=== PATIENT | male | born 1980 | race Caucasian/White ===

== ENCOUNTER 2022-05-03 18:37 | Emergency (ER) | payer SELFPAY ==
[2022-05-03 18:39] VITALS: BP 122/92; PULSE 102; RESP 18; TEMP 36.7; O2SAT 100; BMI 30.3
[2022-05-03] MEDS: DiphenhydrAMINE 50 MG/ML Syringe IV (18:50)
[2022-05-03] MEDS: MethylPREDNISolone 125 MG/2 ML Vial IV (18:52)
[2022-05-03 18:57] VITALS: O2SAT 96
--- NOTE | 2022-05-03 18:57 | EDS_ITS ---
HPI History of Present Illness Chief Complaint: Allergic Reaction Informant: patient and spouse/S.O. Narrative Narrative: Patient presents with what they think is allergic reaction to shrimp. Patient was asymptomatic. They went out to red lobster to all you can eat shrimp. He has eaten shrimp before without a problem. He was okay right after eating. He went home. He then got on the treadmill. He was doing some exercising was just typical. He noticed his hands were redder than normal. He then started to get a tingling sensation diffusely. He was not short of breath or chest pain. He states he does not feel as though his air is closing up. It is mostly the redness and itching and tingling. Its not worsening. But is not getting better. Nothing was taken. He is overall healthy with no real medical problems. [facility] Medical History Bipolar disorder Home Medications prednisone 20 mg tablet 40 mg PO DAILY #10 TABLETS 05/03/22 [Rx Last Taken Unknown] Allergy/AdvReac Type Severity Reaction Status Date / Time No Known Allergies Allergy Verified 05/03/22 18:41 Social History Smoking Status: Never smoker ROS ROS ED Constitutional Constitutional ED: Denies chills, fever(s), subjective or sweats Eyes Eyes: Denies change in vision ENT ENT ED: Denies rhinorrhea or sore throat Cardiovascular Cardiovascular: Denies chest pain, orthopnea, palpitations or paroxysmal nocturnal dyspnea Respiratory/Chest Respiratory/Chest: Denies cough, dyspnea, dyspnea on exertion, orthopnea, paroxysmal nocturnal dyspnea or sputum Gastrointestinal Gastrointestinal: Denies abdominal pain, nausea or vomiting Musculoskeletal Musculoskeletal: Denies myalgias Integumentary Reports rash Neurologic Neurologic: Denies headache(s), paresthesias or weakness Psychiatric Psychiatric: Denies anxiety Hematologic/Lymphatic Hematologic/Lymphatic: Denies easy bleeding or easy bruising Allergic/Immunologic Allergic/Immunologic ED: Denies urticaria EXAM Physical Exam Narrative Exam Narrative: Patient awake alert no acute distress sitting comfortably on bed carries on normal conversation. HEENT does show some erythema but no intraoral swelling. Voice is normal. Handle secretions normally. No nasal congestion. Neck shows no stridor or JVD Lungs are completely clear. There is no wheezing or rhonchi. Saturations are normal at 100% on room air showing no hypoxia. Heart is regular. He does have a rate about 100. Peripheral pulses are equal and normal. Abdomen is soft completely nontender nondistended. Bowel sounds are normal. Extremities show no tenderness or swelling Neurologically he is awake alert appropriate. Skin does show diffuse erythema that is blanching. This is consistent with allergic reaction. Const Vital Signs: 05/03/22 18:39 05/03/22 18:57 Temperature 98.1 F Temperature Source Temporal Pulse Rate 102 H Respiratory Rate 18 Blood Pressure 122/92 H Blood Pressure Mean 102 Pulse Ox 100 96 Oxygen Delivery Method Room Air Room Air MDM MDM MDM Narrative Medical decision making narrative: Patient's recheck. All his erythema is gone. He is asymptomatic. We will keep him on meds for a few days. I will write for some steroids. We discussed dosing of [id number] Benadryl and Pepcid. We also discussed reasons to return and avoidance of shrimp in the future Discharge Plan Triage Chief Complaint: Allergic Reaction ED Provider: Luke Real Dx/Rx/DC Orders Clinical Impression: Allergy to shrimp, Hives Instructions: ED Food Allergy Prescriptions: New prednisone 20 mg tablet 40 mg PO DAILY Qty: 10 0RF Primary Care Provider: Al Perez Referrals: Al Perez MD [Primary Care Provider] - As Needed Disposition Disposition: Home, Self Care
[2022-05-03] MEDS: 0.9% Normal Saline 1,000 ML 999 ML IV (19:10)
[2022-05-03] MEDS: Famotidine 200 MG/20 ML MDV 20 MG in 0.9% Normal Saline (Pres. free 8 ML 300 MG IV (19:13)
--- NOTE | 2022-05-03 19:49 | ED.RN ---
PER DR. MARIE, PT OKAY TO HAVE A DRINK.
[2022-05-03 20:56] VITALS: RESP 17; O2SAT 98
== END 2022-05-03 21:25 | disposition home or self-care (01) ==
PROVIDERS: Emergency Provider Emergency Medicine; PCP Family Medicine; Visit Provider Emergency Medicine
DX: T78.1XXA Other adverse food reactions, not elsewhere classified, initial encounter (principal); L50.0 Allergic urticaria; Y92.009 Unspecified place in unspecified non-institutional (private) residence as the place of occurrence of the external cause
CPT/HCPCS: 96361; 96374; 96375; 99282; J7030; A4216; J3490

== ENCOUNTER 2023-10-27 18:07 | Inpatient (IN) | payer BC, SELFPAY ==
[2023-10-27 18:08] VITALS: BP 148/85; PULSE 106; RESP 18; TEMP 36.4; O2SAT 97; BMI 33.3
[2023-10-27 19:10] VITALS: BP 138/90; PULSE 99; RESP 18; TEMP 37.2; O2SAT 97
[2023-10-27 19:10] LABS: Absolute Lymphocyte Count 1.36 X10^3/uL (0.83-4.51); Absolute Neutrophil Count 9.8 X10^3/uL (2.0-7.7); Basophil# 0.04 X10^3/uL; Basophil% 0.3 % (0-1); Eosinophil# 0.01 X10^3/uL; Eosinophils% 0.1 % (0-5); Hemoglobin 13.9 g/dL (13.0-16.5); Lymphocyte # 1.36 X10^3/ul (0.83-4.51); Mean Corp Hgb Conc 31.6 g/dL (32-36); Mean Corpuscular Hgb 26.4 pg (27.0-32.0); Mean Corpuscular Volume 83.7 fL (80-94); Mean Platelet Vol. 10.9 fl (6.2-12.0); Monocyte# 1.04 X10^3/uL; Monocyte% 8.4 % (0-10); NRBC Flagged by Analyzer 0 % (0-5); Neutrophil # 9.76 X10^3/uL (2.7-7.7); Neutrophil % 79.4 % (47-70); Platelet Count 188 K/mm3 (150-450); RBC Distribution Width CV 13.4 % (11.6-14.6); RBC Distribution Width SD 40.5 fl (35.1-43.9); Red Blood Count 5.26 M/mm3 (4.6-6.2); White Blood Count 12.3 K/mm3 (4.4-11.0)
[2023-10-27 19:20] LABS: Erythrocyte Sedimentation Rate 7 mm/hr (0-20)
[2023-10-27 19:26] LABS: AST(SGOT) 13 U/L (15-37); Alanine Aminotransfer ALT/SGPT 20 U/L (16-61); Albumin, Serum 3.6 g/dL (3.2-5.0); Alkaline Phosphatase 109 U/L (45-117); Anion Gap 6 (5-15); BUN 18 mg/dL (7-18); Calcium,Total 9.2 mg/dL (8.5-10.1); Chloride 108 mmol/L (98-107); EST Glomerular Filtration Rate 87 mL/min (>60); Est Glom Filt Rate - Afr Amer 105 mL/min (>60); Estimated Creatinine Clearance 122.88 ml/min; Globulin 3.7 g/dL (2.2-4.2); Glucose 89 mg/dL (74-106); Potassium 3.8 mmol/L (3.5-5.1); Protein, Total 7.3 g/dL (6.4-8.2); Sodium Level 140 mmol/L (136-145)
[2023-10-27 19:37] LABS: Lactic Acid 0.8 mmol/L (0.4-1.9)
--- NOTE | 2023-10-27 19:49 | EDS_ITS ---
HPI History of Present Illness Chief Complaint: Upper Extremity Injury Detail of Chief Complaint: Patient seen October 02 for presumed abscess dorsum left wrist Informant: patient Occured/Mechanism Comment: Attempted aspiration unsuccessful. Patient's had pain since September. Onset/Context/Timing Onset: Weeks Context: Sudden Onset Timing: Continuous Quality of Pain: Dull and Aching Location: Left wrist Current Severity: Mild Maximum Severity: Severe Worsened by: Movement Relieved by: Nothing Associated Symptoms Associated Symptoms: Negative for Parasthesia or Weakness Narrative Narrative: Patient is a 43-year-old male. He has history of bipolar affective disorder. He was seen on October 02 with attempt of aspiration dorsal left wrist abscess. He was placed on doxycycline for streptococcal and MRSA coverage. He has had pain since the . He was seen today by Dr. Macias. He performed an arthrocentesis. He states the fluid was purulent. He requested patient receive antibiotics admit n.p.o. after midnight with plan of possible washout tomorrow. Patient denies objective fever. He has had no chills. He has no history of gout or pseudogout. He denies pain in his digits or elbow. Prior similar symptoms: Yes Recent Illness/Hospitalization: Yes PFSH PFSH Medical History Non-restorative sleep Wrist pain, left Swelling of left wrist Knee pain, right Sweating increase Snoring Nevus Bipolar disorder Home Medications ?Medication ?Instructions ?Recorded ?Last Taken ?Type clozapine 100 mg tablet 600 mg PO QHS 10/03/23 Unknown History glycopyrrolate 1 mg tablet 1 mg PO TID 10/03/23 Unknown History lithium carbonate 600 mg capsule 600 mg PO BID 10/03/23 Unknown History docusate sodium 100 mg capsule 100 mg PO BID 10/20/23 Unknown History (Colace) Allergy/AdvReac Type Severity Reaction Status Date / Time clarithromycin (From Biaxin) Allergy PT UNSURE Verified 10/27/23 18:10 OF REACTION Social History household members: spouse number of children: 2 current occupational status: employed current occupation: [employer] Smoking Status: Never smoker alcohol intake: never substance use type: does not use seatbelt use: always ROS ROS ED Constitutional Constitutional ED: Denies chills, fever(s), subjective or sweats Eyes Eyes: Denies blurry vision or change in vision Cardiovascular Cardiovascular: Denies chest pain or palpitations Respiratory/Chest Respiratory/Chest: Denies cough or dyspnea Gastrointestinal Gastrointestinal: Denies nausea or vomiting Musculoskeletal Musculoskeletal: Denies back pain, myalgias or neck pain Neurologic Neurologic: Denies paresthesias or weakness Hematologic/Lymphatic Hematologic/Lymphatic: Denies easy bleeding or easy bruising EXAM Physical Exam Const Vital Signs: 10/27/23 18:08 Temperature 97.6 F L Temperature Source Temporal Pulse Rate 106 H Respiratory Rate 18 Blood Pressure 148/85 H Blood Pressure Mean 106 Pulse Ox 97 Oxygen Delivery Method Room Air Positive well nourished and well developed General Appearance ED: well developed and NAD HEENT Reports moist mucous membranes normocephalic and atraumatic Eyes PERRL and EOMs intact bilaterally Resp normal respiratory effort and clear to auscultation bilaterally Cardio regular rate, regular rhythm, S1 normal heart sound, S2 normal heart sound and no murmurs GI non-tender, non-distended and no masses Extremity Negative for normal to inspection Extremity Narrative: There is erythema swelling over the left wrist dorsal side. This is very painful. He has pain with passive flexion extension. There is no lymphangitis. There is no epitrochlear lymphadenopathy. Neuro oriented x3, CN's II-XII intact bilaterally and moves all extremities Sensorium / Orientation: alert Psych mental status grossly normal Skin Skin Narrative: Erythema over the MDM MDM MDM Narrative Medical decision making narrative: Differential diagnosis would include crystal induced arthritis, inflammatory arthritis versus pyogenic arthritis. Will obtain appropriate blood work. The joint was aspirated per Dr. Lay. He said he sent it for appropriate analysis. Patient was started on ampicillin and vancomycin per the sepsis order set. Lab Data Attestation: I reviewed the patient's lab results. Lab results narrative: White count is elevated 12.3. Electrolyte panel is unremarkable. Lactate is normal. C-reactive protein is elevated at 19.3. ESR is normal.Per lab quantity submitted was insufficient. Labs: Laboratory Results - last 24 hr 10/27/23 19:00 WBC 12.3 H RBC 5.26 Hgb 13.9 Hct 44.0 MCV 83.7 MCH 26.4 L MCHC 31.6 L RDW Std Deviation 40.5 RDW Coeff of [place] 13.4 Plt Count 188 MPV 10.9 Immature Gran % (Auto) 0.800 Neut % (Auto) 79.4 H Lymph % (Auto) 11.0 L [place] % (Auto) 8.4 Eos % (Auto) 0.1 Baso % (Auto) 0.3 Absolute Neuts (auto) 9.8 H Absolute Lymphs (auto) 1.36 Nucleated RBC % 0 ESR 7 Sodium 140 Potassium 3.8 Chloride 108 H Carbon Dioxide 26.0 Anion Gap 6 BUN 18 Creatinine 1.00 Estim Creat Clear Calc 122.88 Est GFR (MDRD) Af Amer 105 Est GFR (MDRD) Non-Af 87 BUN/Creatinine Ratio 18.0 Glucose 89 Lactic Acid 0.8 Calcium 9.2 Total Bilirubin 0.60 AST 13 L ALT 20 Alkaline Phosphatase 109 C-React Prot Ext Range 19.30 H Total Protein 7.3 Albumin 3.6 Globulin 3.7 Albumin/Globulin Ratio 1.0 Management Discussion w/another healthcare provider: Hospitalist (Case discussed with hospitalist. Full admit MedSurg with consult to Dr. Macias) Discharge Plan Dx/Rx/DC Orders Clinical Impression: Monoarticular arthritis, Ganglion cyst of dorsum of left wrist, Leukocytosis, Elevated C-reactive protein Disposition Disposition: Acute Care [facility]
[2023-10-27] MEDS: Ampicillin/Sulbactam 3 GM in 0.9% Normal Saline (100mL MB+) 100 ML IV (19:54)
[2023-10-27 20:00] VITALS: BP 143/90; PULSE 98; RESP 18; TEMP 37.2; O2SAT 98
--- NOTE | 2023-10-27 20:02 | HP.PCM.HOS_ITS ---
[facility] - General General Date of Admission: 10/27/23 Date of Service: 10/27/23 Chief Complaint: Worsening Redness and Swelling of the Left Wrist. [facility] Narrative LIZA DA SILVA, is a 43 M with a past medical history of Obesity; with BMI of 33.4 this admission, Bipolar disorder; on Clozapine and Millis-Clicquot wand history of Ganglion Cyst of the Left wrist who presents to [facility] ER complaining of worsening redness and swelling of the Left wrist. Mr. Da Silva reports his acute symptoms began on October 03, 2023 when a doctor in the ER allegedly tried to aspirate what was thought to be a dorsal Left wrist abscess with postprocedure treatment with oral Doxycycline. Unfortunately, his condition has worsened since that time with increasing pain and swelling. Then earlier today he was seen by Dr. Macias who performed an arthrocentesis with purulent fluid noted consistent with suspected Septic Arthritis of the Left Wrist with Leukocytosis of 12.3K present on admission and then this physician also then recommending to the ER physician that this patient be admitted to the hospitalist service and be kept NPO for his planned surgical I&D in the AM with patient already started on empiric IV Ampicillin and IV Vancomycin in the ER. There is no report of associated fever, chills, nausea, vomiting, abdominal pain, chest pain, SOB or paresthesias. He was then admitted to the general medical floor for ongoing care for a stay that is expected to extend beyond 2 midnights. [facility] Medical History (Updated 10/27/23 @ 20:[address] Josemanuel Palomares, DO) Non-restorative sleep Wrist pain, left Swelling of left wrist Knee pain, right Sweating increase Snoring Nevus Bipolar disorder Home Medications ?Medication ?Instructions ?Recorded ?Last Taken ?Type clozapine 100 mg tablet 600 mg PO QHS 10/03/23 10/26/23 History glycopyrrolate 1 mg tablet 1 mg PO TID 10/03/23 10/27/23 History lithium carbonate 600 mg capsule 600 mg PO BID 10/03/23 10/27/23 History docusate sodium 100 mg capsule 100 mg PO BID 10/20/23 10/27/23 History (Colace) Allergy/AdvReac Type Severity Reaction Status Date / Time clarithromycin (From Biaxin) Allergy PT UNSURE Verified 10/27/23 18:10 OF REACTION Social History household members: spouse number of children: 2 current occupational status: employed current occupation: [employer] Smoking Status: Never smoker alcohol intake: never substance use type: does not use seatbelt use: always ROS ROS Narrative Review of Systems: Constitutional: Patient denies fever or chills. Eyes: Patient denies changes in vision or discharge from eyes. ENT: Patient denies runny nose, sore throat or ear pain. Resp: Patient denies SOB or cough. CV: Patient denies chest pain, palpitations or heart racing. GI: Patient denies abdominal pain, nausea, vomiting, diarrhea or constipation. : Patient denies dysuria, hematuria or urinary hesitancy/frequency. MSK: Patient admits to worsening redness and swelling of the Left wrist made worse with movement. Skin: Patient has no evidence of jaundice. Psych: Patient denies symptoms of uncontrolled depression or anxiety. Neuro: Patient denies headache, paresthesias or focal neurologic deficits. Allergy: Patient denies lip swelling or tongue swelling. Hematology: Patient denies easy bleeding or easy bruisability. Endocrinology: Patient denies polyuria, polydipsia or polyphagia. 14 point ROS otherwise negative except for positives noted above in HPI. Vital Signs Vital Signs Vital Signs: 10/27/23 18:08 Temperature 97.6 F L Temperature Source Temporal Pulse Rate 106 H Respiratory Rate 18 Blood Pressure 148/85 H Blood Pressure Mean 106 Pulse Ox 97 Oxygen Delivery Method Room Air Weight Weight: 246 lb 1.6 oz Body Mass Index (BMI) 33.3 Physical Exam Const alert, oriented x3, no apparent distress and healthy appearing Constitutional Narrative: Obese. General Appearance: cooperative HEENT normocephalic, head/scalp atraumatic, hearing grossly normal bilaterally and moist oral mucous membranes Eyes PERRL and EOMs intact bilaterally Neck no lymphadenopathy and supple Resp normal respiratory effort, no retractions, no use of accessory muscles and clear to auscultation bilaterally Cardio regular rate and regular rhythm GI normal to inspection, nondistended, normoactive bowel sounds, soft to palpation, non-tender and non-distended GI Narrative: Obese. Extremity Extremity Narrative: Left wrist edema and erythema noted. Skin Skin Narrative: Left wrist edema and erythema noted. Neuro oriented x3, CN's II-XII intact bilaterally, moves all extremities and no focal motor deficits Sensorium / Orientation: awake, alert, oriented to person, oriented to place and oriented to time Speech: speech normal Psych affect normal Results Medical Records Data Attestation: I reviewed the patient's medical records Lab / Micro Data Attestation: I reviewed the patient's lab results. 10/27/23 19:00 10/27/23 19:00 Labs: Laboratory Results - last 24 hr 10/27/23 19:00: WBC 12.3 H, RBC 5.26, Hgb 13.9, Hct 44.0, MCV 83.7, MCH 26.4 L, MCHC 31.6 L, RDW Std Deviation 40.5, RDW Coeff of Emily 13.4, Plt Count 188, MPV 10.9, Immature Gran % (Auto) 0.800, Neut % (Auto) 79.4 H, Lymph % (Auto) 11.0 L, [place] % (Auto) 8.4, Eos % (Auto) 0.1, Baso % (Auto) 0.3, Absolute Neuts (auto) 9.8 H, Absolute Lymphs (auto) 1.36, Nucleated RBC % 0, ESR 7, Sodium 140, Potassium 3.8, Chloride 108 H, Carbon Dioxide 26.0, Anion Gap 6, BUN 18, Creatinine 1.00, Estim Creat Clear Calc 122.88, Est GFR (MDRD) Af Amer 105, Est GFR (MDRD) Non-Af 87, BUN/Creatinine Ratio 18.0, Glucose 89, Lactic Acid 0.8, Calcium 9.2, Total Bilirubin 0.60, AST 13 L, ALT 20, Alkaline Phosphatase 109, C -React Prot Ext Range 19.30 H, Total Protein 7.3, Albumin 3.6, Globulin 3.7, Albumin/Globulin Ratio 1.0 Assessment & Plan Assessment/Plan (1) Septic arthritis: QUALIFIERS: Laterality: left Septic arthritis location: wrist S eptic arthritis organism: due to unspecified organism Qualified Code(s): M00.9 - Pyogenic arthritis, unspecified (2) Ganglion cyst of dorsum of left wrist: (3) Leukocytosis: QUALIFIERS: Leukocytosis type: unspecified Qualified Code(s): D 72.829 - Elevated white blood cell count, unspecified (4) Bipolar disorder: QUALIFIERS: Active/Remission status: remission status unspecified Qualified Code(s): F31.9 - Bipolar disorder, unspecified (5) Obesity (BMI 30.0-34.9): PLAN: Plan 1. Septic Arthritis of the Left Wrist with Leukocytosis of 12.3K present on admission in the setting of previous Ganglion Cyst - Admit to general medical floor. Continue empiric IV Ampicillin and IV Vancomycin begun in the ER and await culture and sensitivity data. Give Tylenol prn for [id number] (level 1-5/10) pain or fever. Give Morphine IV prn for severe (level 6-10/10) pain. Finally, we will consult Dr. Macias to see his patient on-rounds in the AM for formal I&D with help appreciated in advance. 2. Bipolar disorder; on Clozapine and [place] complicating #1 - Resume home medications as previous plus give prn benzodiazepines for breakthrough symptoms. 3. Obesity; with BMI of 33.4 this admission - Weight loss will be recommended. Check TSH. 4. DVT prophylaxis - SCD's only for now with I&D pending in the AM. Total time: Approximately 45 minutes. Charges/Coding Visit Charges Inpatient E&M: 31203 Init Hosp L1
[2023-10-27] MEDS: Ketorolac 15 MG/ML Vial IV (20:32)
[2023-10-27] MEDS: Ondansetron 4 MG/2 ML Vial IV (20:32)
[2023-10-27] MEDS: Morphine 4 MG/ML Syringe IV (20:33)
[2023-10-27 20:34] VITALS: BP 141/90; PULSE 90; RESP 18; TEMP 37.2; O2SAT 97
[2023-10-27] MEDS: Vancomycin HCl 2,000 MG in 0.9% Normal Saline (500mL Bag) 500 ML 250 MG IV (21:03)
[2023-10-27 21:20] VITALS: BMI 29.9
[2023-10-27 21:29] VITALS: BP 133/87; PULSE 90; RESP 16; TEMP 36.7; O2SAT 98
[2023-10-27] MEDS: 0.9% Normal Saline (1000mL) 1,000 ML 125 ML IV (22:04)
--- NOTE | 2023-10-27 22:04 | PCM.RX.CS ---
Consult Antibiotic Management Pharmacy has been consulted to manage selected antibiotic: Vancomycin Type of Intervention Type of Consult: New start Suspected Infection Suspected Infection: Sepsis Labs Labs: Sodium 140 mmol/L (136-145) 10/27/23 19:00 Potassium 3.8 mmol/L (3.5-5.1) 10/27/23 19:00 Chloride 108 mmol/L (98-107) H 10/27/23 19:00 Carbon Dioxide 26.0 mmol/L (21.0-32.0) 10/27/23 19:00 Anion Gap 6 (5-15) 10/27/23 19:00 BUN 18 mg/dL (7-18) 10/27/23 19:00 Creatinine 1.00 mg/dL (0.70-1.30) 10/27/23 19:00 Est GFR (MDRD) Af Amer 105 mL/min (>60) 10/27/23 19:00 Est GFR (MDRD) Non-Af 87 mL/min (>60) 10/27/23 19:00 BUN/Creatinine Ratio 18.0 RATIO (10-20) 10/27/23 19:00 Glucose 89 mg/dL (74-106) 10/27/23 19:00 Dosing Weight Weight used for dosin.6 kg Estimated Creatinine Clearance Estimated Creatinine Clearance: 123 Goal Trough Goal Trough: 15-20 mcg/mL Pharmacy Plan for Drug Dosing Pharmacy Plan for Drug Dosing: Pharmacy Service will continue to monitor and adjust dosing as required. Follow-Up Labs Follow-Up Labs: Trough: Vancomycin Date/Time Labs Ordered Labs to be done on [date and time ordered]: 10/28/23 @2030
[2023-10-27] MEDS: Lithium Carbonate 300mg Capsule 600 MG PO (22:07)
[2023-10-27] MEDS: cloZAPine 100 MG TABLET 600 MG PO (22:07)
[2023-10-27] MEDS: Docusate Sodium 100 MG Capsule PO (22:07)
[2023-10-27] MEDS: Glycopyrrolate 1 MG TABLET PO (22:08)
[2023-10-28] VITALS (12 sets, daily range): BP systolic 104–152; BP diastolic 67–89; PULSE 79–102; RESP 16–20; TEMP 36.6–37.2; O2SAT 92–98; BMI 29.9
[2023-10-28] MEDS: Ampicillin/Sulbactam 3 GM in 0.9% Normal Saline (100mL MB+) 100 ML IV ×4 (00:40→18:31)
[2023-10-28] MEDS: Acetaminophen 325 MG Tablet 650 MG PO ×3 (04:22→22:02)
[2023-10-28] MEDS: Vancomycin HCl 1,500 MG in 0.9% Normal Saline (500mL Bag) 500 ML 250 MG IV ×3 (04:27→21:58)
[2023-10-28 05:47] LABS: Absolute Lymphocyte Count 0.96 X10^3/uL (0.83-4.51); Absolute Neutrophil Count 9.5 X10^3/uL (2.0-7.7); Basophil# 0.03 X10^3/uL; Basophil% 0.3 % (0-1); Hematocrit 42.3 % (40-54); Hemoglobin 13.2 g/dL (13.0-16.5); Lymphocyte # 0.96 X10^3/ul (0.83-4.51); Lymphocyte % 8.6 % (19-41); Mean Corp Hgb Conc 31.2 g/dL (32-36); Mean Corpuscular Hgb 26.5 pg (27.0-32.0); Mean Corpuscular Volume 84.9 fL (80-94); Monocyte# 0.64 X10^3/uL; Monocyte% 5.7 % (0-10); NRBC Flagged by Analyzer 0 % (0-5); Neutrophil # 9.52 X10^3/uL (2.7-7.7); Neutrophil % 84.9 % (47-70); Platelet Count 163 K/mm3 (150-450); RBC Distribution Width CV 13.5 % (11.6-14.6); Red Blood Count 4.98 M/mm3 (4.6-6.2); White Blood Count 11.2 K/mm3 (4.4-11.0)
[2023-10-28 06:11] LABS: ALB/GLOB Ratio 1.1 RATIO (0.9-2.4); AST(SGOT) 13 U/L (15-37); Alanine Aminotransfer ALT/SGPT 17 U/L (16-61); Albumin, Serum 3.1 g/dL (3.2-5.0); Alkaline Phosphatase 93 U/L (45-117); Anion Gap 6 (5-15); BUN 17 mg/dL (7-18); BUN/Creat Ratio 18.7 RATIO (10-20); Calcium,Total 8.3 mg/dL (8.5-10.1); Chloride 113 mmol/L (98-107); Creatinine, Serum 0.91 mg/dL (0.70-1.30); EST Glomerular Filtration Rate 97 mL/min (>60); Est Glom Filt Rate - Afr Amer 117 mL/min (>60); Estimated Creatinine Clearance 143.19 ml/min; Globulin 2.9 g/dL (2.2-4.2); Glucose 117 mg/dL (74-106); Phosphorus 3.1 mg/dL (2.5-4.9); Potassium 3.8 mmol/L (3.5-5.1); Sodium Level 142 mmol/L (136-145)
--- NOTE | 2023-10-28 06:13 | RAD_ITS ---
EXAM: XR LEFT HAND COMPLETE, 3 OR MORE VIEWS CLINICAL INDICATION: LT HAND PAIN TECHNIQUE: Frontal, lateral and oblique views of the left hand. COMPARISON: No relevant prior studies available. FINDINGS: BONES/JOINTS: Unremarkable. No acute fracture. No subluxation. Normal alignment. Preservation of the joint space. No sclerotic or destructive changes observed. SOFT TISSUES: Unremarkable. No soft tissue swelling or gas. No radiopaque foreign body. RAD/Hand Min 3 Views IMPRESSION: Negative left hand x-rays. Electronically Signed: Gaston Sepulveda MD at 7:27 EDT ,
[2023-10-28] MEDS: 0.9% Normal Saline (1000mL) 1,000 ML 125 ML IV ×3 (06:42→21:58)
--- NOTE | 2023-10-28 07:09 | PN.HOSP_ITS ---
Reason for Visit Reason for Visit: Diagnoses Elevated white blood cell count, unspecified (10/27/23) Obesity, unspecified (10/27/23) Bipolar disorder, unspecified (10/27/23) Pyogenic arthritis, unspecified (10/27/23) Monoarthritis, not elsewhere classified, unspecified site (10/27/23) Ganglion, left wrist (10/27/23) Subjective Subjective Still with the left wrist pain but overall better. Objective Data Objective Data Vital Signs: Vital Signs Temp Pulse Resp BP Pulse Ox O2 Del Method 36.6 C 102 H 20 H 134/67 H 96 Room Air 10/28/23 04:16 10/28/23 04:16 10/28/23 04:16 10/28/23 04:16 10/28/23 04:16 10/28/23 04:16 Oxygen Delivery Method Room Air Weight: 111.6 kg Body Mass Index (BMI) 29.9 Intake & Output: Intake and Output for Last 24 Hours 10/26/23 10/27/23 10/28/23 23:59 23:59 23:59 Intake Total 652 / 652 1642 / 1642 Balance 652 / 652 1642 / 1642 Lab / Micro Data 10/28/23 05:21 10/28/23 05:21 Labs: Laboratory Results - last 24 hr 10/27/23 19:00: WBC 12.3 H, RBC 5.26, Hgb 13.9, Hct 44.0, MCV 83.7, MCH 26.4 L, MCHC 31.6 L, RDW Std Deviation 40.5, RDW Coeff of Emily 13.4, Plt Count 188, MPV 10.9, Immature Gran % (Auto) 0.800, Neut % (Auto) 79.4 H, Lymph % (Auto) 11.0 L, [place] % (Auto) 8.4, Eos % (Auto) 0.1, Baso % (Auto) 0.3, Absolute Neuts (auto) 9.8 H, Absolute Lymphs (auto) 1.36, Nucleated RBC % 0, ESR 7, Sodium 140, Potassium 3.8, Chloride 108 H, Carbon Dioxide 26.0, Anion Gap 6, BUN 18, Creatinine 1.00, Estim Creat Clear Calc 122.88, Est GFR (MDRD) Af Amer 105, Est GFR (MDRD) Non-Af 87, BUN/Creatinine Ratio 18.0, Glucose 89, Lactic Acid 0.8, Calcium 9.2, Total Bilirubin 0.60, AST 13 L, ALT 20, Alkaline Phosphatase 109, C -React Prot Ext Range 19.30 H, Total Protein 7.3, Albumin 3.6, Globulin 3.7, Albumin/Globulin Ratio 1.0 10/28/23 05:21: WBC 11.2 H, RBC 4.98, Hgb 13.2, Hct 42.3, MCV 84.9, MCH 26.5 L, MCHC 31.2 L, RDW Std Deviation 42.0, RDW Coeff of Emily 13.5, Plt Count 163, MPV 11.0, Immature Gran % (Auto) 0.500, Neut % (Auto) 84.9 H, Lymph % (Auto) 8.6 L, [place] % (Auto) 5.7, Eos % (Auto) 0.0, Baso % (Auto) 0.3, Absolute Neuts (auto) 9.5 H, Absolute Lymphs (auto) 0.96, Nucleated RBC % 0, Sodium 142, Potassium 3.8, Chloride 113 H, Carbon Dioxide 23.0, Anion Gap 6, BUN 17, Creatinine 0.91, Estim Creat Clear Calc 143.19, Est GFR (MDRD) Af Amer 117, Est GFR (MDRD) Non-Af 97, BUN/Creatinine Ratio 18.7, Glucose 117 H, Calcium 8.3 L, Phosphorus 3.1, Magnesium 2.0, Total Bilirubin 0.60, AST 13 L, ALT 17, Alkaline Phosphatase 93, Total Protein 6.0 L, Albumin 3.1 L, Globulin 2.9, Albumin/Globulin Ratio 1.1, TSH 2.700 Physical Exam Const alert and no apparent distress HEENT head/scalp atraumatic and moist oral mucous membranes Resp normal respiratory effort and no retractions Extremity Extremity Narrative: Slight tenderness over the medial aspect of the left wrist. Neuro Sensorium / Orientation: awake and alert Assessment & Plan Assessment/Plan (1) Septic arthritis: QUALIFIERS: Laterality: left Septic arthritis location: wrist S eptic arthritis organism: due to unspecified organism Qualified Code(s): M00.9 - Pyogenic arthritis, unspecified (2) Ganglion cyst of dorsum of left wrist: (3) Leukocytosis: QUALIFIERS: Leukocytosis type: unspecified Qualified Code(s): D 72.829 - Elevated white blood cell count, unspecified (4) Bipolar disorder: QUALIFIERS: Active/Remission status: remission status unspecified Qualified Code(s): F31.9 - Bipolar disorder, unspecified (5) Obesity (BMI 30.0-34.9): PLAN: Plan Septic Arthritis of the Left Wrist * Aspirated in the office. Cultures pending. * On vancomycin and ampicillin/sulbactam * Patient had arthrocentesis on the that did not show any crystals and again today given no crystals.. Purulent fluid was aspirated. DW Dr. Macias. Chronic conditions * Bipolar disorder: Continue clozapine and lithium. [place] level pending. VTE prophylaxis with SCDs for now. Charges/Coding Visit Charges Inpatient E&M: 33258 Subs Hosp L2
--- NOTE | 2023-10-28 07:31 | EX.PCM.CON.S ---
Assessment & Plan Assessment/Plan (1) Wrist pain, left: PLAN: Opaque yellow fluid was aspirated from the wrist yesterday. No organisms seen on Gram stain. His pain improved with wrist aspiration. We need to get crystals in an accurate white blood cell count. Given that the treatment for septic wrist can be serial aspiration, I think it is quite appropriate to aspirate the wrist again this morning to provide the lab with more sample for crystals and a white blood cell count. We will also follow-up on the cultures. This will be both diagnostic and therapeutic. If he does end up having a septic wrist I would like to wash his wrist out in the operating room rather than doing serial taps, but I do not have this diagnosis yet. We should keep him n.p.o. for now. I reviewed the x-ray from this morning. No signs of infectious process/osteo. I have also ordered and US of the wrist mass (ganglion?). HPI Consult Data Date of Consult: 10/28/23 HPI Narrative HPI Narrative: Bethel Moses is a 43-year-old male who presents today with a left dorsal forearm mass. He is a referral from Dr. Welsh at [facility]. Patient reports that in mid September 2023 he started to have some swelling and pain from the left wrist and presented to the emergency department for evaluation on 03 October 2023. The ED physician attempted to aspirate a left dorsal forearm mass that had been present for some time (several years) and was thought to be a ganglion. He did not get any fluid from from it. X-ray was unremarkable. There is no concern at this time for septic wrist so he was sent home on doxycycline. He was also prescribed prednisone from his family doctor for swelling and inflammation in the wrist as there was concerned that maybe he had had a spider bite or maybe there was some kind of autoimmune disorder. He is still on the steroids and is finishing this weekend with the taper. He would like the dorsal forearm mass removed. He does not feel like he is having any signs or symptoms like he was last month (no fevers chills, no wrist joint pain). He is not sure if it was the antibiotics or the for the steroids that helped him. No one is ever actually gotten a joint aspirate. He is not a smoker He is right-hand dominant 27 October 2023: Patient returns today for follow up. He called our office on Tuesday (2 days ago) and reported that his left wrist was becoming painful again, but that it was not hot and swollen. He called in the late afternoon and was told to go to the emergency room immediately by our advanced practice provider for evaluation, but he he declined and wanted to follow-up with us in clinic today instead. Today he reports that his swelling is worse as well and the pain is persisting. He reports pain particularly over the dorsal wrist/hand mass but also in the wrist joint. No fevers or chills. He went to work today. He is finished the antibiotics and the steroids from his other physicians. Inpatient consultation from medicine team, 28 Oct 2023: Patient admitted to medicine last night for left wrist pain r/o inflammatory arthritis. Patient reports improvement in pain after wrist aspiration, but worsening of pain thereafter. Reports sharp severe pain of the left wrist, improved by rest and elevation and improved with wrist tap. [facility] Medical History Non-restorative sleep Wrist pain, left Swelling of left wrist Knee pain, right Sweating increase Snoring Nevus Bipolar disorder Home Medications ?Medication ?Instructions ?Recorded ?Last Taken ?Type clozapine 100 mg tablet 600 mg PO QHS 10/03/23 10/26/23 History glycopyrrolate 1 mg tablet 1 mg PO TID 10/03/23 10/27/23 History lithium carbonate 600 mg capsule 600 mg PO BID 10/03/23 10/27/23 History docusate sodium 100 mg capsule 100 mg PO BID 10/20/23 10/27/23 History (Colace) Allergy/AdvReac Type Severity Reaction Status Date / Time clarithromycin (From Biaxin) Allergy PT UNSURE Verified 10/27/23 18:10 OF REACTION Social History household members: spouse number of children: 2 current occupational status: employed current occupation: [employer] Smoking Status: Never smoker alcohol intake: never substance use type: does not use seatbelt use: always Physical Exam Narrative Left upper extremity + Pain in the wrist joint with axial loading of the left wrist (worse than yesterday). There is pain in the 3/4 interval just distal to Moe's tubercle. No warmth or induration, but slight redness over the dorsal wrist mass. Full range of motion of the hand and wrist. There is a 2 x 2 cm mass under the EDC tendons (smaller since aspiration) near the 3/4 interval that feels mobile and feels like a ganglion cyst. The cyst is tender to palpation No axillary or antecubital/epitrochlear lymphadenopathy No pain over the palm. Lab / Micro Data Attestation: I reviewed the patient's lab results. Lab results narrative: I personally examined the gram stain this morning in the lab (was not done yesterday). No organisms seen on my read or the tech's read. 92% PMNs They could not do a crystal or a white blood cell count with the sample. 10/28/23 05:21 10/28/23 05:21 Labs: Laboratory Results - last 24 hr 10/27/23 19:00: WBC 12.3 H, RBC 5.26, Hgb 13.9, Hct 44.0, MCV 83.7, MCH 26.4 L, MCHC 31.6 L, RDW Std Deviation 40.5, RDW Coeff of Emily 13.4, Plt Count 188, MPV 10.9, Immature Gran % (Auto) 0.800, Neut % (Auto) 79.4 H, Lymph % (Auto) 11.0 L, [place] % (Auto) 8.4, Eos % (Auto) 0.1, Baso % (Auto) 0.3, Absolute Neuts (auto) 9.8 H, Absolute Lymphs (auto) 1.36, Nucleated RBC % 0, ESR 7, Sodium 140, Potassium 3.8, Chloride 108 H, Carbon Dioxide 26.0, Anion Gap 6, BUN 18, Creatinine 1.00, Estim Creat Clear Calc 122.88, Est GFR (MDRD) Af Amer 105, Est GFR (MDRD) Non-Af 87, BUN/Creatinine Ratio 18.0, Glucose 89, Lactic Acid 0.8, Calcium 9.2, Total Bilirubin 0.60, AST 13 L, ALT 20, Alkaline Phosphatase 109, C-React Prot Ext Range 19.30 H, Total Protein 7.3, Albumin 3.6, Globulin 3.7, Albumin/Globulin Ratio 1.0 10/28/23 05:21: WBC 11.2 H, RBC 4.98, Hgb 13.2, Hct 42.3, MCV 84.9, MCH 26.5 L, MCHC 31.2 L, RDW Std Deviation 42.0, RDW Coeff of Emily 13.5, Plt Count 163, MPV 11.0, Immature Gran % (Auto) 0.500, Neut % (Auto) 84.9 H, Lymph % (Auto) 8.6 L, [place] % (Auto) 5.7, Eos % (Auto) 0.0, Baso % (Auto) 0.3, Absolute Neuts (auto) 9.5 H, Absolute Lymphs (auto) 0.96, Nucleated RBC % 0, Sodium 142, Potassium 3.8, Chloride 113 H, Carbon Dioxide 23.0, Anion Gap 6, BUN 17, Creatinine 0.91, Estim Creat Clear Calc 143.19, Est GFR (MDRD) Af Amer 117, Est GFR (MDRD) Non-Af 97, BUN/Creatinine Ratio 18.7, Glucose 117 H, Calcium 8.3 L, Phosphorus 3.1, Magnesium 2.0, Total Bilirubin 0.60, AST 13 L, ALT 17, Alkaline Phosphatase 93, Total Protein 6.0 L, Albumin 3.1 L, Globulin 2.9, Albumin/Globulin Ratio 1.1, TSH 2.700 10/28/23 06:46: [place] 0.60 Imaging Radiology Impression Hand X-Ray 10/28/23 06:13 IMPRESSION: Negative left hand x-rays. Electronically Signed: Gaston Sepulveda MD at 7:27 EDT Reading Location ID and State: [facility] / [place] Tel , Service support , Charges/Coding Multi Select Codes Visit Charges Office Visit/Consults: [id number] IP Consult L5 (I reviewed imaging, looked at the gram stain, examined the patient, talked to infectious disease and internal medicine physicians.)
--- NOTE | 2023-10-28 08:31 | US_ITS ---
STUDY: SUPERFICIAL ULTRASOUND - LEFT WRIST REASON FOR EXAM: Male, 43 years old. Left wrist mass (ganglion?) TECHNIQUE: A superficial ultrasound was performed with real-time and static ibanez-scale imaging. COMPARISON: None. FINDINGS: There is a complex predominantly hypoechoic mass measuring 1.5 x 2 x 0.5 cm which does not have typical appearance for a ganglion. Possibility of hemorrhagic ganglion may have this appearance. This may be further correlated with MRI if clinically warranted US/Ext Non Vasc Limited/Soft Tiss IMPRESSION: Nonspecific nodule within the dorsal surface of the left wrist not typical appearance for ganglion. Clinical correlation recommended Electronically Signed: John Henderson MD at 23:09 EDT ,
[2023-10-28] MEDS: Docusate Sodium 100 MG Capsule PO ×2 (10:01→22:03)
[2023-10-28] MEDS: Lithium Carbonate 300mg Capsule 600 MG PO ×2 (10:01→22:03)
[2023-10-28 10:08] LABS: Pathologist Comment May follow
[2023-10-28 10:15] LABS: Synovial Fld Mononuclear WBC # 8.796 10^3/ul; Synovial Fld Mononuclear WBC % 10.2 %; Synovial Fld Polynuclear WBC # 77.788 10^3/uL; Synovial Fld Polynuclear WBC % 89.8 %
[2023-10-28 10:25] LABS: RBC /Synovial Fluid 0.006 10^6/uL (0)
[2023-10-28 10:26] LABS: AUTO B FLUID DILUENT BKGD CT WBC <0.1 RBC <0.01 (W<.1,R<.01); Appearance /Synovial Fluid Cloudy (CLEAR); Color / Synovial Fluid Yellow (Pale Yellow); Source / Synovial Fluid LEFT WRIST; Source- Body Fluid SYNOVIAL
[2023-10-28 10:31] LABS: CRYSTALS, BODY FLUID NO CRYSTALS SEEN
--- NOTE | 2023-10-28 10:43 | PCM.OP.BLANK ---
Operative Report Date of Procedure: 10/28/23 Procedure Date: 28 October 2023 PATIENT: Bethel Moses SURGEON: Shahram Macias MD PRE-OPERATIVE DIAGNOSIS: Inflammatory process left wrist joint POST-OPERATIVE DIAGNOSIS: Same PROCEDURE PERFORMED: 1) aspiration of left wrist joint (cpt 70097) OPERATIVE FINDINGS: Yellow opaque fluid INDICATIONS: Bethel Msoes was admitted for a painful left wrist joint yesterday by the medicine team. The wrist was tapped yesterday. the original Gram stain was inconclusive (no organisms seen) but there were no crystals on exam. Given that the aspiration improved his pain, and could be considered a treatment also for a septic wrist, the decision was made to perform both a diagnostic and potentially therapeutic left wrist aspiration. Patient consented and a timeout was performed on the floor. OPERATIVE DETAILS: The left wrist was prepped and draped in sterile fashion and the needle was placed distal to Moe's tubercle and the 3 4 interval to aspirate the left wrist and yellow opaque fluid was aspirated and sent to pathology for crystals, culture, Gram stain, white blood cell and PMNs count. Patient tolerated the procedure well
[2023-10-28 11:14] LABS: Lymph 5 %; Monocyte /Synovial Fluid 6 %; Neutrophil 89 % (0-25)
[2023-10-28 11:15] LABS: Body Fluid QC Type(s) BF1Q,BF2Q
--- NOTE | 2023-10-28 11:36 | CASEMGMT ---
JOSSELYN CRAVEN Assessment Face to Face with patient for initial transition planning/care coordination assessment. JOSSELYN CRAVEN introduced self and role at [facility], pt voices understanding. Pt is A&Ox4 and is resting comfortably in bed and is calm. Care providers, pharmacy, and demographics verified. Admitting dx: Septic Arthritis LACE Strata: 1 PCP: Sharla Mckenzie Specialists: Dr Macias (Pod) and Dr Mehta (ID) are consulted during stay Preferred Pharmacy: [facility] Insurance: [place] Prescription Benefit:Yes LNOK: Mavis Moses (W) Living Arrangements: Pt lives with his and 13 y/o step dtr in a 2 story home with 2 steps to enter ADLs/IADLs: Ind Transportation: Self, DME: Denies all DME uses or needs HHC/SNF: Denies Hx or needs Pt?s goal: Home Plan: home no needs vs Home with IV ATBs. ID and Podiatry are consulted. Pt denies wanting to review a list of local in network HHC companies and states that he would like to go through [facility] in the case that he would need home IV ATBs. Pt states that he and his will be the teachable caregivers. A list of local in network home infusion companies provided to the pt at this time. Pt prefers [facility]. [facility] JOSSELYN CRAVEN updated and to follow. Kacy Poon RN, CM
[2023-10-28] MEDS: Glycopyrrolate 1 MG TABLET PO ×2 (13:31→22:03)
[2023-10-28 14:29] LABS: Pathologist Review Reviewed
--- NOTE | 2023-10-28 15:03 | PCM.CONS.GEN ---
Assessment & Plan Assessment/Plan (1) Septic arthritis: QUALIFIERS: Septic arthritis location: wrist Septic arthritis organism: due to unspecified organism Laterality: left Qualified Code(s): M00.9 - Pyogenic arthritis, unspecified PLAN: OR today with Dr. Macias. Aspiration cxs pending. Feeling better, will cont vanc/unasyn. Will follow, thank you HPI Consult Data Date of Consult: 10/28/23 HPI Narrative Reason for Consultation: hand infection HPI Narrative: LIZA DA SILVA, is a 43 M with h/o bipolar, presented 10/26 with almost 4 weeks of progressive L wrist swelling, redness, tenderness. No fever or chills, no drainage at home. Came to ED here 10/02, c/o 2-3 days of symptoms, had unsuccessful aspiration tried. Given course of po doxy and prednisone with no improvement. No known inciting event. Came back to hospital, admitted yesterday, aspiration done and then repeated this AM. Feeling better, hand less red, less swollen, less sore. Full ROS performed and neg except as noted above. [facility] Medical History Non-restorative sleep Wrist pain, left Swelling of left wrist Knee pain, right Sweating increase Snoring Nevus Bipolar disorder Home Medications ?Medication ?Instructions ?Recorded ?Last Taken ?Type clozapine 100 mg tablet 600 mg PO QHS 10/03/23 10/26/23 History glycopyrrolate 1 mg tablet 1 mg PO TID 10/03/23 10/27/23 History lithium carbonate 600 mg capsule 600 mg PO BID 10/03/23 10/27/23 History docusate sodium 100 mg capsule 100 mg PO BID 10/20/23 10/27/23 History (Colace) Allergy/AdvReac Type Severity Reaction Status Date / Time clarithromycin (From Biaxin) Allergy PT UNSURE Verified 10/27/23 18:10 OF REACTION Social History household members: spouse number of children: 2 current occupational status: employed current occupation: [employer] Smoking Status: Never smoker alcohol intake: never substance use type: does not use seatbelt use: always Physical Exam Const alert, oriented x3 and no apparent distress General Appearance: cooperative HEENT normocephalic and head/scalp atraumatic Eyes PERRL and EOMs intact bilaterally Neck supple and No nodes Resp normal air movement and clear to auscultation bilaterally Cardio regular rate and regular rhythm GI soft to palpation, non-tender and non-distended Extremity General Extremity: Negative for edema Skin Skin Narrative: L dorsal wrist faint redness, some swelling and tenderness Neuro CN's II-XII intact bilaterally Lab / Micro Data Attestation: I reviewed the patient's lab results. 10/28/23 05:21 10/28/23 05:21 Labs: Laboratory Results - last 24 hr 10/27/23 19:00: WBC 12.3 H, RBC 5.26, Hgb 13.9, Hct 44.0, MCV 83.7, MCH 26.4 L, MCHC 31.6 L, RDW Std Deviation 40.5, RDW Coeff of Emily 13.4, Plt Count 188, MPV 10.9, Immature Gran % (Auto) 0.800, Neut % (Auto) 79.4 H, Lymph % (Auto) 11.0 L, [place] % (Auto) 8.4, Eos % (Auto) 0.1, Baso % (Auto) 0.3, Absolute Neuts (auto) 9.8 H, Absolute Lymphs (auto) 1.36, Nucleated RBC % 0, ESR 7, Sodium 140, Potassium 3.8, Chloride 108 H, Carbon Dioxide 26.0, Anion Gap 6, BUN 18, Creatinine 1.00, Estim Creat Clear Calc 122.88, Est GFR (MDRD) Af Amer 105, Est GFR (MDRD) Non-Af 87, BUN/Creatinine Ratio 18.0, Glucose 89, Lactic Acid 0.8, Calcium 9.2, Total Bilirubin 0.60, AST 13 L, ALT 20, Alkaline Phosphatase 109, C-React Prot Ext Range 19.30 H, Total Protein 7.3, Albumin 3.6, Globulin 3.7, Albumin/Globulin Ratio 1.0 10/28/23 05:21: WBC 11.2 H, RBC 4.98, Hgb 13.2, Hct 42.3, MCV 84.9, MCH 26.5 L, MCHC 31.2 L, RDW Std Deviation 42.0, RDW Coeff of Emily 13.5, Plt Count 163, MPV 11.0, Immature Gran % (Auto) 0.500, Neut % (Auto) 84.9 H, Lymph % (Auto) 8.6 L, [place] % (Auto) 5.7, Eos % (Auto) 0.0, Baso % (Auto) 0.3, Absolute Neuts (auto) 9.5 H, Absolute Lymphs (auto) 0.96, Nucleated RBC % 0, Sodium 142, Potassium 3.8, Chloride 113 H, Carbon Dioxide 23.0, Anion Gap 6, BUN 17, Creatinine 0.91, Estim Creat Clear Calc 143.19, Est GFR (MDRD) Af Amer 117, Est GFR (MDRD) Non-Af 97, BUN/Creatinine Ratio 18.7, Glucose 117 H, Calcium 8.3 L, Phosphorus 3.1, Magnesium 2.0, Total Bilirubin 0.60, AST 13 L, ALT 17, Alkaline Phosphatase 93, Total Protein 6.0 L, Albumin 3.1 L, Globulin 2.9, Albumin/Globulin Ratio 1.1, TSH 2.700 10/28/23 06:46: [place] 0.60 10/28/23 09:30: Fluid Color Cancelled, Fluid Appearance Cancelled, Fluid WBC Cancelled, Fluid Crystals NO CRYSTALS SEEN, Fluid Crystal Source SYNOVIAL, Fl Crystal Path Review Reviewed, Synovial Source LEFT WRIST, Synovial Color Yellow, Synovial Appearance Cloudy, Synovial WBC 78.9900 H, Synovial RBC 0.006 H, Synovial Tot Cell Ct 79.0400 H, Synov Polynuclear WBCs 77.788, Synov Mononuclear WBCs 8.796, Synovial Neutrophils 89 H, Synovial Lymphocytes 5, Synovial Monocytes 6, Synovial Polynuclear % 89.8, Synovial Mononuclear % 10.2, Synovial Path Comment May follow Micro: Microbiology 10/28/23 09:30 Fluid - Synovial (joint) Gram Stain - Final Imaging Radiology Impression Hand X-Ray 10/28/23 06:13 IMPRESSION: Negative left hand x-rays. Electronically Signed: Gaston Sepulveda MD at 7:27 EDT ,
--- NOTE | 2023-10-28 15:05 | GANG_PTH ---
PATIENT: LIZA DA SILVA LOC: [facility] U#:[id number] AGE/SX: 43/M ROOM: [facility] RE10/27/[address]: Dr. Sivan Wright MD : 1980 BED: 1 DIS: 11/01/2023 SPEC #: [id number] RECD: 10/31/23 07:13 STATUS: YAMILE CHA #: [id number] CANDI: 10/28/23 15:[address]: Shahram Macias DEPT: SURGICAL PATHOLOGY RECD BY: Keyur Valentino ENTERED: 10/31/23 09:53 SP TYPE: GANGLION OTHR DR: MD Dr. Josemanuel Reynolds DO Dr. Eric Jopperi, DO Dr. Nana Yaa Koram, MD Dr. Robert Leininger, MD Dr. Ugo Gallo, MD Tissues: GANGLION CYST Procedures: Surgery Specimen Level III HEADER OPERATION: Wrist wash out and cyst removal PRE-OP DIAGNOSIS: Worsening redness and swelling of left wrist, septic left wrist TISSUE SUBMITTED: Ganglion cyst left wrist MICROSCOPIC DIAGNOSIS Soft tissue of left wrist, excision: Consistent with ganglion cyst. 11/01/2023 MICROSCOPIC DESCRIPTION Slides are reviewed. GROSS DESCRIPTION Received in fixative is one container labeled with the patient's name and designated Ganglion cyst left wrist. The specimen consists of two pieces of [id number] soft tissue measuring in aggregate 1.0 x 1.0 x 0.2cm. The entire specimen is submitted in one cassette. 10/31/2023 TC:5 CPT:54457
--- NOTE | 2023-10-28 15:18 | PRE.ANES_ITS ---
ASA Classification* ASA Classification ASA Classification: 2 and E Assessment & Plan Anesthesia* Anesthesia Assessment Anesthesia Assessment: Discussed sedation and/or anesthesia options, risks, benefits, and alternatives with patient/parents/legal guardian/POA. Questions invited. The patient/parents/legal guardian/POA seems to understand and agrees to proceed with anesthesia plan. Reviewed the physical assessment, medical history, allergy history and patient home medications list prior to surgery/procedure/anesthetic and documented any changes. Performed airway and anesthesia risk assessments. Anesthesia Type Anesthesia Type: General Anesthesia Focused Assessment* Temperature: 99.0 F Pulse Rate: 99 Blood Pressure: 104/71 Respiratory Rate: 18 Pulse Ox: 95 Airway Assessment Mouth opens: >3 cm Mallampati Score: II Focused Labs Anesthesia Preop lab: CBC WBC 11.2 K/mm3 (4.4-11.0) H 10/28/23 05:21 RBC 4.98 M/mm3 (4.6-6.2) 10/28/23 05:21 Hgb 13.2 g/dL (13.0-16.5) 10/28/23 05:21 Hct 42.3 % (40-54) 10/28/23 05:21 Plt Count 163 K/mm3 (150-450) 10/28/23 05:21 CHEMISTRY Potassium 3.8 mmol/L (3.5-5.1) 10/28/23 05:21 Sodium 142 mmol/L (136-145) 10/28/23 05:21 Magnesium 2.0 mg/dL (1.6-2.6) 10/28/23 05:21 Phosphorus 3.1 mg/dL (2.5-4.9) 10/28/23 05:21 BUN 17 mg/dL (7-18) 10/28/23 05:21 Creatinine 0.91 mg/dL (0.70-1.30) 10/28/23 05:21 Glucose 117 mg/dL (74-106) H 10/28/23 05:21 TSH 2.700 uIU/mL (0.358-3.740) 10/28/23 05:21 COAG Pre-Assessment Diagnosis/Proposed Procedure Planned Operative Procedure(s): orif septic wrist Anesthesia History Anesthesia History - fabric stretcher: Anesthesia History - fabric stretcher Hx Hospitalization Any Problems With Anesthesia No 10/27/23 21:28 Cholinesterase deficiency No 10/27/23 21:28 You/Your Family Experience No 10/27/23 21:28 fever (hyperthermia) with Relationship Recent Exposure to Contagious No 10/27/23 21:28 Disease Does patient have nerve No 10/27/23 21:28 stimulator Patient instructed to have No 10/27/23 21:28 device shut off --Does patient have Pacemaker or ICD? When Was Last Pacemaker Check QUESTION #4 FULL TEXT: You/Your Family Experience fever (hyperthermia) with Anesthesia Last Oral Intake Last Oral intake: Last Oral Intake NPO since Meds taken in AM with sips of water? Meds patient instructed to take am of surgery PONV PONV - fabric stretcher: PONV - fabric stretcher Female HX of Motion Sickness HX of N/V After Surgery Non-Smoker Duration of Surgery greater than 60 minutes Number of Risk Factors PONV Score Height & Weight Height & Weight: Anesthesia: Height & Weight Height 6 ft 4 in 10/27/23 21:20 Weight: 111.6 kg 10/28/23 06:00 Body Mass Index (BMI) 29.9 10/28/23 06:00 Respiratory Assessment Respiratory Assessment - fabric stretcher: Respiratory Tract Infection Hx - fabric stretcher Hx Respiratory Tract Infection No 10/27/23 21:28 STOP Sleep Apnea STOP Sleep Apnea - fabric stretcher: STOP Sleep Apnea - fabric stretcher Hx Hypertension No 10/27/23 21:20 Hx Sleep Apnea No 10/27/23 21:20 CPAP BIPAP Do you snore loudly (louder Yes 10/27/23 21:20 than talking or can be heard Do you often feel tired/ No 10/27/23 21:20 fatigued/ sleepy during daytime? Has anyone observed you stop No 10/27/23 21:20 breathing during sleep? STOP Results Negative 10/27/23 21:20 QUESTION #5 FULL TEXT : Do you snore loudly (louder than talking or can be heard through closed doors)? 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 Specify any problems Hx of Preganancy in last 3 N/A 10/27/23 21:20 Months Nurse Filling Out Transfusion [email or web address] 10/27/23 21:20 & Questions: Date: 10/27/23 10/27/23 21:20 Time: 21:42 10/27/23 21:20 Patient unable to answer at this time (ie. confused, unrespo /Reproduction History /Reproductive History - fabric stretcher: /Reproductive Hx- fabric stretcher Hx Now No 10/27/23 21:28 Gestational Age (in weeks): EDC: Hx Hx Para Hx Section SAB No 10/27/23 21:28 Active Medications Active Medications: Current Medications Generic Name Dose Route Start Last Admin Trade Name Freq PRN Reason Stop Dose Admin Acetaminophen 650 mg 10/27/23 21:20 10/28/23 13:33 Acetaminophen 325 Mg Tablet PO 650 mg Q6H PRN PRN Administration Pain 1-5/10 or Fever Clozapine 600 mg 10/27/23 22:00 10/27/23 22:07 Clozapine 100 Mg Tablet PO 600 mg QHS ANDREA Administration Protocol Docusate Sodium 100 mg 10/27/23 22:00 10/28/23 10:01 Docusate Sodium 100 Mg Capsule PO 100 mg BID ANDREA Administration Glycopyrrolate 1 mg 10/27/23 22:00 10/28/23 13:31 Glycopyrrolate 1 Mg Tablet PO 1 mg TID ANDREA Administration Sodium Chloride 1,000 mls @ 125 mls/hr 10/27/23 20:41 10/28/23 13:30 IV 125 mls/hr .Q8H ANDREA Administration Ampicillin Sodium/Sulbactam 112 mls @ 150 mls/hr 10/28/23 00:00 10/28/23 12:44 Sodium 3 gm/ Sodium Chloride IV Infused Q6 ANDREA Infusion Vancomycin IV-PHARMACY TO DOSE 500 mls @ 250 mls/hr 10/27/23 21:20 1 each/ Sodium Chloride IV PRN PRN Rx to Dose Protocol Sodium Chloride 250 mls @ 15 mls/hr 10/27/23 21:21 IV .[id number] PRN Additional IVPB Infusion Sodium Chloride 250 mls @ 15 mls/hr 10/27/23 21:21 IV .[id number] PRN Saline Flush Vancomycin HCl 1,500 mg/ 530 mls @ 250 mls/hr 10/28/23 05:00 10/28/23 13:27 Sodium Chloride IV 250 mls/hr Q8H ANDREA Administration Farley Carbonate 600 mg 10/27/23 22:00 10/28/23 10:01 Farley Carbonate 300mg Capsule PO 600 mg BID ANDREA Administration Melatonin 3 mg 10/27/23 21:20 Melatonin 3 Mg Tablet PO QHS PRN PRN INSOMNIA Morphine Sulfate 2 mg 10/27/23 21:20 Morphine 2 Mg/Ml Syringe IV Q4H PRN PRN Pain Score 6-10 Ondansetron HCl 4 mg 10/27/23 21:20 Ondansetron 4 Mg/2 Ml Vial IV Q8H PRN PRN NAUSEA/VOMITING Sodium Chloride 10 - 40 ml 10/27/23 21:21 0.9% Saline Lock 10 Ml Syringe IV UD PRN SALINE FLUSH Vancomycin Protocol 1 lab 10/28/23 18:30 Vancomycin Trough/Random Due 10/28/23 22:30 DAILY ANDREA PFSH Medical History Non-restorative sleep Wrist pain, left Swelling of left wrist Knee pain, right Sweating increase Snoring Nevus Bipolar disorder Home Medications ?Medication ?Instructions ?Recorded ?Last Taken ?Type clozapine 100 mg tablet 600 mg PO QHS 10/03/23 10/26/23 History glycopyrrolate 1 mg tablet 1 mg PO TID 10/03/23 10/27/23 History lithium carbonate 600 mg capsule 600 mg PO BID 10/03/23 10/27/23 History docusate sodium 100 mg capsule 100 mg PO BID 10/20/23 10/27/23 History (Colace) Allergy/AdvReac Type Severity Reaction Status Date / Time clarithromycin (From Biaxin) Allergy PT UNSURE Verified 10/27/23 18:10 OF REACTION Social History household members: spouse number of children: 2 current occupational status: employed current occupation: [employer] Smoking Status: Never smoker alcohol intake: never substance use type: does not use seatbelt use: always Review of Systems (Anesthesia) ROS Narrative System reviewed and no additional complaints, except as documented.
--- NOTE | 2023-10-28 17:35 | OP.PCM_ITS ---
Operative Report Date of Procedure: 10/28/23 Surgery/Procedure Date: 28 Oct 2023 Incision/Procedure Start Time: 15:56 Incision Close/Procedure End Time: 17:50 (54-minutes) PATIENT: Bethel Moses SURGEON: Shahram Macias MD PRE-OPERATIVE DIAGNOSIS: Septic left wrist, possible ganglion POST-OPERATIVE DIAGNOSIS: Same PROCEDURE PERFORMED: 1) Dorsal approach for left wrist arthrotomy and washout (CPT 29966) 2) Excision of left wrist cyst, possible ganglion (CPT 70985) OPERATIVE FINDINGS: Possible ganglion cyst sac, sent to pathology Septic left wrist with purulent drainage INDICATIONS: Bethel Moses is a 43-year-old male who was admitted by the medicine team for rule out septic left wrist versus inflammatory process and left wrist. I tapped his left wrist joint and got cloudy yellow fluid. There was bacteria on the Gram stain per the pathologist sample and read of both the first aspirate and the second aspirate. The cell counts were consistent with septic arthritis as well as the PMNs were greater than 90%. I talked the patient extensively about the risks of surgery, including bleeding, failure to and infection and need for repeat surgery, damage to surrounding structures, wound formation, need for wound care, failure to obtain the desired result, DVT/PE, and the risks of anesthesia including . All of their questions were answered, and they agreed to proceed with surgery. He has a low risk for DVT PE with a Caprini score of 3 (BMI greater than 25). Of note he also had a left wrist mass on the dorsum of his hand/wrist that got smaller with wrist aspiration and was therefore likely consistent with a joint leak/ganglion cyst. This was the area of exquisite tenderness on his exam. We discussed removal of this spot/washout of this area and he agreed. OPERATIVE DETAILS: Patient was correctly identified in preoperative holding. I marked his left upper extremity. He is taken back to the operating room where he was administered general anesthesia. A timeout was performed. Once appropriate level of anesthesia was obtained with prepped and draped the left upper extremity placed a tourniquet on his left arm. An Esmarch was used and the tourniquet was inflated to 250 mmHg. SCDs were on and activated for induction. A vertical incision was made over the dorsal wrist over Moe's tubercle and tenotomy scissors were used to dissect down to the extensor retinaculum which was entered and care was taken to protect the tendons of the third and fourth extensor compartments. The EPL was retracted radially, and the EDC retracted ulnarly exposing the joint capsule. A ligament sparing approach was used, with a triangular flap of joint capsule created, starting on the proximal radial side of the joint capsule, going towards the triquetrum, and then across the dorsal intercarpal ligament. Care was taken to preserve and protect the SL ligament. The joint capsule was entered and purulent yellow fluid was encountered. It was cultured and sent for broad cultures. The joint was then washed out with 3 L of normal saline and 500 cc of Irrisept. We then turned our attention to the dorsal wrist mass which was underneath the EDC tendon. It was deflated at this point, but the capsule was identified and excised with a tenotomy scissor carefully and sent to pathology. A portion of the specimen was also cultured. This area was washed out with copious amounts normal saline as well. The tourniquet was deflated (total tourniquet time 40 minutes). Hemostasis was obtained with bipolar electrocautery and 10 cc of local 1% lidocaine with epinephrine. A 3-0 Monocryl was then used to close the distal portions of the joint capsule and 1/4 inch [place] was then placed at the 3 4 interval with the proximal portion of the joint capsule left open for drainage and soaks. The extensor retinaculum was then closed loosely over the extensor tendons. The skin was then closed with 3-0 nylon interrupted horizontal mattresses with the drain included and sutured into place. Kerlix and an Lavon wrap was applied, as well as plaster for slight flexion of the wrist. The patient tolerated the procedure well and was awakened and taken to the PACU in stable condition. EBL: 10 cc Anesthesia: Local block and general anesthesia Antibiotics: No preoperative antibiotics because already getting vancomycin and Unasyn on the floor ASA: 2 IVF: 400 cc normal saline UOP: Unmeasured no Wilkes Transfusions: None POST-OPERATIVE PLAN: Okay for DVT prophylaxis starting immediately. We will start Dial soap soaks for the left upper extremity every 8 hours followed by dry dressing with the wrist in slight flexion to leave the joint and the ganglion cavity open for drainage. Continue broad-spectrum antibiotics and follow-up culture.
--- NOTE | 2023-10-28 17:37 | PCM.POST.ANE ---
Anesthesia: Postop Eval I Current Vital Signs Temperature: 98 F Pulse Rate: 80 Blood Pressure: 120/80 Respiratory Rate: 16 Pulse Ox: 93 Assessment Airway patent: Yes Spontaneous unlabored respirations: Yes Mental status: Awake nausea: No Vomiting: No Anesthesia Complication: No Fluid Hydration Crystalloid volume administer (ml): 300 Total IV fluid infused: 300 Progress Note Anesthesia document: Postop Eval 1 completed: Yes
--- NOTE | 2023-10-28 17:43 | PCM.POSTANE2 ---
Anesthesia Postop Eval I Sum Postop Eval Completion status Anesthesia document: Postop Eval 1 completed: Yes Anesthesia Postop Eval I Summary Anesthesia Postop Eval I Summary: Anesthesia Postop Eval I: Assessment Summary Airway patent Yes 10/28/23 17:38 Spontaneous unlabored Yes 10/28/23 17:38 respirations Mental status Awake 10/28/23 17:38 nausea No 10/28/23 17:38 Vomiting No 10/28/23 17:38 Anesthesia Postop Eval I: Fluid Summary Crystalloid volume administer 300 10/28/23 17:38 (ml) Colloids volume administered ( ml) Blood Product volume administered (ml) Total IV fluid infused 300 10/28/23 17:38 Anesthesia Postop Eval I: Summary Notes Anesthesia Complication No 10/28/23 17:38 Anesthesia Complication Comment: Post-operative progress note Anesthesia: Postop Eval II Evaluation Mental status: Awake Pain Level: 0 nausea: No Vomiting: No
[2023-10-28] MEDS: FLU VACC 2024-25(6MOS UP)/PF 45 MCG/0.5 ML SYRINGE IM (18:30)
[2023-10-28] MEDS: Morphine 2 MG/ML Syringe IV (20:16)
[2023-10-28 20:54] LABS: Vancomycin, Trough Level 18.5 ug/mL (5.0-15.0)
--- NOTE | 2023-10-28 21:50 | PCM.RX.CS ---
Consult Antibiotic Management Pharmacy has been consulted to manage selected antibiotic: Vancomycin Type of Intervention Type of Consult: Follow-up Labs Labs: Sodium 142 mmol/L (136-145) 10/28/23 05:21 Potassium 3.8 mmol/L (3.5-5.1) 10/28/23 05:21 Chloride 113 mmol/L (98-107) H 10/28/23 05:21 Carbon Dioxide 23.0 mmol/L (21.0-32.0) 10/28/23 05:21 Anion Gap 6 (5-15) 10/28/23 05:21 BUN 17 mg/dL (7-18) 10/28/23 05:21 Creatinine 0.91 mg/dL (0.70-1.30) 10/28/23 05:21 Est GFR (MDRD) Af Amer 117 mL/min (>60) 10/28/23 05:21 Est GFR (MDRD) Non-Af 97 mL/min (>60) 10/28/23 05:21 BUN/Creatinine Ratio 18.7 RATIO (10-20) 10/28/23 05:21 Glucose 117 mg/dL (74-106) H 10/28/23 05:21 Vancomycin Trough 18.5 ug/mL (5.0-15.0) H 10/28/23 20:27 Microbiology Microbiology: Microbiology 10/28/23 09:30 Fluid - Synovial (joint) Gram Stain - Final Dosing Weight Weight used for dosin.6 kg Estimated Creatinine Clearance Estimated Creatinine Clearance: 143 Goal Trough Goal Trough: 15-20 mcg/mL Pharmacy Plan for Drug Dosing Pharmacy Plan for Drug Dosing: Vancomycin trough level of 18.5, drawn 7 hours post-dose, was within the target range of 15-20. Will continue dosing at 1500mg q8h, and will draw another trough in two days. Pharmacy Service will continue to monitor and adjust dosing as required. Follow-Up Labs Follow-Up Labs: Trough: Vancomycin Date/Time Labs Ordered Labs to be done on [date and time ordered]: 10/30/23 @2030
[2023-10-28] MEDS: cloZAPine 100 MG TABLET 600 MG PO (22:03)
[2023-10-29] MEDS: Morphine 2 MG/ML Syringe IV ×3 (00:25→16:02)
[2023-10-29] MEDS: Ampicillin/Sulbactam 3 GM in 0.9% Normal Saline (100mL MB+) 100 ML IV ×4 (00:28→18:50)
[2023-10-29 02:13] VITALS: BP 160/88; PULSE 96; RESP 18; TEMP 36.6; O2SAT 96
[2023-10-29] MEDS: Vancomycin HCl 1,500 MG in 0.9% Normal Saline (500mL Bag) 500 ML 250 MG IV ×3 (04:33→21:17)
[2023-10-29 06:00] VITALS: BMI 30.9
[2023-10-29 06:21] VITALS: BP 151/91; PULSE 107; RESP 18; TEMP 37.1; O2SAT 98
[2023-10-29 06:28] LABS: Absolute Lymphocyte Count 0.73 X10^3/uL (0.83-4.51); Absolute Neutrophil Count 9.3 X10^3/uL (2.0-7.7); Basophil# 0.03 X10^3/uL; Basophil% 0.3 % (0-1); Hematocrit 39.1 % (40-54); Hemoglobin 11.9 g/dL (13.0-16.5); Lymphocyte # 0.73 X10^3/ul (0.83-4.51); Lymphocyte % 6.8 % (19-41); Mean Corp Hgb Conc 30.4 g/dL (32-36); Mean Corpuscular Hgb 26.2 pg (27.0-32.0); Mean Corpuscular Volume 86.1 fL (80-94); Mean Platelet Vol. 11.7 fl (6.2-12.0); Monocyte# 0.61 X10^3/uL; Monocyte% 5.7 % (0-10); NRBC Flagged by Analyzer 0 % (0-5); Neutrophil # 9.28 X10^3/uL (2.7-7.7); Neutrophil % 86.6 % (47-70); Platelet Count 145 K/mm3 (150-450); RBC Distribution Width CV 13.6 % (11.6-14.6); RBC Distribution Width SD 43.2 fl (35.1-43.9); Red Blood Count 4.54 M/mm3 (4.6-6.2); White Blood Count 10.7 K/mm3 (4.4-11.0)
--- NOTE | 2023-10-29 06:32 | PN.SURG_ITS ---
Subjective Subjective Patient postop day 1 from left septic wrist washout. He reports his pain is improved this morning. He had an uneventful night and got some sleep. Objective Data Objective Data No culture data yet Vital Signs: Vital Signs Temp Pulse Resp BP Pulse Ox O2 Del Method 98.7 F 107 H 18 151/91 H 98 Room Air 10/29/23 06:21 10/29/23 06:21 10/29/23 06:21 10/29/23 06:21 10/29/23 06:21 10/29/23 06:21 Oxygen Delivery Method Room Air Weight: 253 lb 15.56 oz Body Mass Index (BMI) 30.9 Intake & Output: Intake and Output for Last 24 Hours 10/27/23 10/28/23 10/29/23 23:59 23:59 23:59 Intake Total 652 / 652 4389.66 / 4789.66 1042 / 1042 Balance 652 / 652 4389.66 / 4789.66 1042 / 1042 Lab / Micro Data 10/29/23 05:20 10/28/23 05:21 Labs: Laboratory Results - last 24 hr 10/28/23 06:46: [place] 0.60 10/28/23 09:30: Fluid Color Cancelled, Fluid Appearance Cancelled, Fluid WBC Cancelled, Fluid Crystals NO CRYSTALS SEEN, Fluid Crystal Source SYNOVIAL, Fl Crystal Path Review Reviewed, Synovial Source LEFT WRIST, Synovial Color Yellow, Synovial Appearance Cloudy, Synovial WBC 78.9900 H, Synovial RBC 0.006 H, S ynovial Tot Cell Ct 79.0400 H, Synov Polynuclear WBCs 77.788, Synov Mononuclear WBCs 8.796, Synovial Neutrophils 89 H, Synovial Lymphocytes 5, Synovial Monocytes 6, Synovial Polynuclear % 89.8, Synovial Mononuclear % 10.2, Synovial Path Comment May follow 10/28/23 20:27: Vancomycin Trough 18.5 H 10/29/23 05:20: WBC 10.7, RBC 4.54 L, Hgb 11.9 L, Hct 39.1 L, MCV 86.1, MCH 26.2 L, MCHC 30.4 L, RDW Std Deviation 43.2, RDW Coeff of Emily 13.6, Plt Count 145 L, MPV 11.7, Immature Gran % (Auto) 0.600, Neut % (Auto) 86.6 H, Lymph % (Auto) 6.8 L, [place] % (Auto) 5.7, Eos % (Auto) 0.0, Baso % (Auto) 0.3, Absolute Neuts (auto) 9.3 H, Absolute Lymphs (auto) 0.73 L, Nucleated RBC % 0 Micro: Microbiology 10/28/23 09:30 Fluid - Synovial (joint) Gram Stain - Final Radiography Diagnostic Testing: Radiology Impression Hand X-Ray 10/28/23 06:13 IMPRESSION: Negative left hand x-rays. Electronically Signed: Gaston Sepulveda MD at 7:27 EDT , Physical Exam Narrative Left upper extremity Dressing and splint removed. No redness or swelling of the left wrist. Incision partially closed with drain. No purulence from the drain. Started him on a Dial soap soak. Const alert and oriented x3 Extremity Extremity Narrative: SCDs on and activated Assessment & Plan Assessment/Plan (1) Septic arthritis: QUALIFIERS: Septic arthritis location: wrist Septic arthritis organism: due to unspecified organism Laterality: left Qualified Code(s): M 00.9 - Pyogenic arthritis, unspecified PLAN: Continue broad-spectrum antibiotics as we await culture data 3 times per day Dial soap soaks of the left wrist Elevate left upper extremity Continue splint with slight flexion of the wrist. [facility]SU will continue to follow Okay for DVT chemoprophylaxis Encourage ambulation Charges/Coding Procedures Integumentary [id number]: [id number] Global Visit
[2023-10-29] MEDS: Glycopyrrolate 1 MG TABLET PO ×3 (06:52→21:17)
[2023-10-29 06:56] LABS: Anion Gap 4 (5-15); BUN 11 mg/dL (7-18); BUN/Creat Ratio 13.6 RATIO (10-20); Calcium,Total 8.3 mg/dL (8.5-10.1); Chloride 115 mmol/L (98-107); Creatinine, Serum 0.81 mg/dL (0.70-1.30); EST Glomerular Filtration Rate 111 mL/min (>60); Est Glom Filt Rate - Afr Amer 134 mL/min (>60); Estimated Creatinine Clearance 163.26 ml/min; Glucose 173 mg/dL (74-106); Magnesium 2.1 mg/dL (1.6-2.6); Phosphorus 2.3 mg/dL (2.5-4.9); Potassium 3.8 mmol/L (3.5-5.1); Sodium Level 142 mmol/L (136-145)
[2023-10-29] MEDS: 0.9% Normal Saline (1000mL) 1,000 ML 125 ML IV ×2 (06:57→16:11)
--- NOTE | 2023-10-29 07:27 | PN.HOSP_ITS ---
Reason for Visit Reason for Visit: Diagnoses Elevated white blood cell count, unspecified (10/27/23) Obesity, unspecified (10/27/23) Bipolar disorder, unspecified (10/27/23) Pyogenic arthritis, unspecified (10/27/23) Monoarthritis, not elsewhere classified, unspecified site (10/27/23) Pain in left wrist (10/27/23) Ganglion, left wrist (10/27/23) Subjective Subjective Feeling better. Objective Data Objective Data Vital Signs: Vital Signs Temp Pulse Resp BP Pulse Ox O2 Del Method 37.1 C 107 H 18 151/91 H 98 Room Air 10/29/23 06:21 10/29/23 06:21 10/29/23 06:21 10/29/23 06:21 10/29/23 06:21 10/29/23 06:21 Oxygen Delivery Method Room Air Weight: 115.2 kg Body Mass Index (BMI) 30.9 Intake & Output: Intake and Output for Last 24 Hours 10/27/23 10/28/23 10/29/23 23:59 23:59 23:59 Intake Total 652 / 652 4389.66 / 4789.66 2572 / 2572 Balance 652 / 652 4389.66 / 4789.66 2572 / 2572 Lab / Micro Data 10/29/23 05:20 10/29/23 05:20 Labs: Laboratory Results - last 24 hr 10/28/23 06:46: [place] 0.60 10/28/23 09:30: Fluid Color Cancelled, Fluid Appearance Cancelled, Fluid WBC Cancelled, Fluid Crystals NO CRYSTALS SEEN, Fluid Crystal Source SYNOVIAL, Fl Crystal Path Review Reviewed, Synovial Source LEFT WRIST, Synovial Color Yellow, Synovial Appearance Cloudy, Synovial WBC 78.9900 H, Synovial RBC 0.006 H, S ynovial Tot Cell Ct 79.0400 H, Synov Polynuclear WBCs 77.788, Synov Mononuclear WBCs 8.796, Synovial Neutrophils 89 H, Synovial Lymphocytes 5, Synovial Monocytes 6, Synovial Polynuclear % 89.8, Synovial Mononuclear % 10.2, Synovial Path Comment May follow 10/28/23 20:27: Vancomycin Trough 18.5 H 10/29/23 05:20: WBC 10.7, RBC 4.54 L, Hgb 11.9 L, Hct 39.1 L, MCV 86.1, MCH 26.2 L, MCHC 30.4 L, RDW Std Deviation 43.2, RDW Coeff of Emily 13.6, Plt Count 145 L, MPV 11.7, Immature Gran % (Auto) 0.600, Neut % (Auto) 86.6 H, Lymph % (Auto) 6.8 L, [place] % (Auto) 5.7, Eos % (Auto) 0.0, Baso % (Auto) 0.3, Absolute Neuts (auto) 9.3 H, Absolute Lymphs (auto) 0.73 L, Nucleated RBC % 0, Sodium 142, Potassium 3.8, Chloride 115 H, Carbon Dioxide 23.0, Anion Gap 4 L, BUN 11, Creatinine 0.81, Estim Creat Clear Calc 163.26, Est GFR (MDRD) Af Amer 134, Est GFR (MDRD) Non-Af 111, BUN/Creatinine Ratio 13.6, Glucose 173 H, Calcium 8.3 L, Phosphorus 2.3 L, Magnesium 2.1 Micro: Microbiology 10/28/23 09:30 Fluid - Synovial (joint) Gram Stain - Final Radiography Diagnostic Testing: Radiology Impression Hand X-Ray 10/28/23 06:13 IMPRESSION: Negative left hand x-rays. Electronically Signed: Gaston Sepulveda MD at 7:27 EDT , Physical Exam Const alert and no apparent distress HEENT head/scalp atraumatic and moist oral mucous membranes Resp normal respiratory effort and no retractions Extremity Extremity Narrative: Left wrist bandaged. Neuro Neuro Narrative: Patient walking through the hallways with steady gait. Psych affect normal Assessment & Plan Assessment/Plan (1) Septic arthritis: QUALIFIERS: Laterality: left Septic arthritis location: wrist S eptic arthritis organism: due to unspecified organism Qualified Code(s): M00.9 - Pyogenic arthritis, unspecified (2) Ganglion cyst of dorsum of left wrist: (3) Leukocytosis: QUALIFIERS: Leukocytosis type: unspecified Qualified Code(s): D 72.829 - Elevated white blood cell count, unspecified (4) Bipolar disorder: QUALIFIERS: Active/Remission status: remission status unspecified Qualified Code(s): F31.9 - Bipolar disorder, unspecified PLAN: Plan Septic Arthritis of the Left Wrist * Aspirated in the office. Cultures pending. * On vancomycin and ampicillin/sulbactam * Patient had arthrocentesis on the and . Then had IR arthrotomy and washout and excision of left wrist with possible ganglion 13. * Follow-up cultures Chronic conditions * Bipolar disorder: Continue clozapine and lithium. [place] 0.6, which is within normal limits VTE prophylaxis with SCDs for now. Charges/Coding Visit Charges Inpatient E&M: 77269 Subs Hosp L2
[2023-10-29 09:16] VITALS: BP 154/86; PULSE 98; RESP 18; TEMP 37.1; O2SAT 100
[2023-10-29] MEDS: Docusate Sodium 100 MG Capsule PO ×2 (09:19→21:17)
[2023-10-29] MEDS: Lithium Carbonate 300mg Capsule 600 MG PO ×2 (09:19→21:17)
[2023-10-29] MEDS: Acetaminophen 325 MG Tablet 650 MG PO ×2 (09:26→18:58)
[2023-10-29 15:53] VITALS: BP 137/91; PULSE 95; RESP 18; TEMP 37.1; O2SAT 98
[2023-10-29] MEDS: 0.9% Saline Lock 10 ML Syringe IV ×2 (16:02→18:52)
[2023-10-29] MEDS: oxyCODONE 5 MG Tablet PO (18:57)
[2023-10-29 19:47] VITALS: BP 138/89; PULSE 92; RESP 16; TEMP 36.6; O2SAT 98
[2023-10-29] MEDS: cloZAPine 100 MG TABLET 600 MG PO (21:17)
[2023-10-30] MEDS: Ampicillin/Sulbactam 3 GM in 0.9% Normal Saline (100mL MB+) 100 ML IV ×4 (00:22→17:58)
[2023-10-30] MEDS: 0.9% Normal Saline (1000mL) 1,000 ML 125 ML IV ×2 (03:31→07:06)
[2023-10-30 03:33] VITALS: BP 137/85; PULSE 92; RESP 18; TEMP 36.6; O2SAT 97
[2023-10-30 05:26] VITALS: BMI 31.1
--- NOTE | 2023-10-30 06:09 | PCM.PN.SRG ---
Subjective Subjective Doing better. Pain improving and ROM of wrist improving. Compliant/tolerating Dial soap soaks . Objective Data Objective Data Vital Signs: Vital Signs Temp Pulse Resp BP Pulse Ox O2 Del Method 97.8 F 92 18 137/85 H 97 Room Air 10/30/23 03:33 10/30/23 03:33 10/30/23 03:33 10/30/23 03:33 10/30/23 03:33 10/30/23 03:33 Oxygen Delivery Method Room Air Weight: 255 lb 15.307 oz Body Mass Index (BMI) 31.1 Intake & Output: Intake and Output for Last 24 Hours 10/28/23 10/29/23 10/30/23 23:59 23:59 23:59 Intake Total 4389.66 / 4789.66 6607.58 / 6607.58 472.42 / 472.42 Balance 4389.66 / 4789.66 6607.58 / 6607.58 472.42 / 472.42 Lab / Micro Data 10/30/23 04:58 10/30/23 04:58 Labs: Laboratory Results - last 24 hr 10/29/23 05:20: WBC 10.7, RBC 4.54 L, Hgb 11.9 L, Hct 39.1 L, MCV 86.1, MCH 26.2 L, MCHC 30.4 L, RDW Std Deviation 43.2, RDW Coeff of Emily 13.6, Plt Count 145 L, MPV 11.7, Immature Gran % (Auto) 0.600, Neut % (Auto) 86.6 H, Lymph % (Auto) 6.8 L, [place] % (Auto) 5.7, Eos % (Auto) 0.0, Baso % (Auto) 0.3, Absolute Neuts (auto) 9.3 H, Absolute Lymphs (auto) 0.73 L, Nucleated RBC % 0, Sodium 142, Potassium 3.8, Chloride 115 H, Carbon Dioxide 23.0, Anion Gap 4 L, BUN 11, Creatinine 0.81, Estim Creat Clear Calc 163.26, Est GFR (MDRD) Af Amer 134, Est GFR (MDRD) Non-Af 111, BUN/Creatinine Ratio 13.6, Glucose 173 H, Calcium 8.3 L, Phosphorus 2.3 L, Magnesium 2.1 Micro: Microbiology 10/28/23 17:15 Tissue - Arm Left Gram Stain - Final 10/28/23 17:15 Tissue - Hand Gram Stain - Final 10/28/23 17:15 Tissue - Hand Wound Culture - Preliminary No growth-Final to follow 10/28/23 17:15 Wound Drainage - Aerobic & Anaerobic Swabs Gram Stain - Final 10/28/23 17:15 Wound Drainage - Aerobic & Anaerobic Swabs Wound Culture - Preliminary No growth-Final to follow 10/28/23 09:30 Fluid - Synovial (joint) Gram Stain - Final Physical Exam Narrative Left upper extremity Dressing and splint removed. No redness or swelling of the left wrist. Incision partially closed with drain. No purulence from the drain. Started him on a Dial soap soak. Motor: Able to bend/extend wrist without much pain. Able to extend thumb IP joint. Sensation: Sensation to light touch intact on the dorsum of the left hand. Const alert and oriented x3 Extremity Extremity Narrative: SCDs on and activated Assessment & Plan Assessment/Plan (1) Septic arthritis: QUALIFIERS: Laterality: left Septic arthritis location: wrist Septic arthritis organism: due to unspecified organism Qualified Code(s): M00.9 - Pyogenic arthritis, unspecified PLAN: Continue broad-spectrum antibiotics as we await culture data 3 times per day Dial soap soaks of the left wrist Elevate left upper extremity Continue splint with slight flexion of the wrist. PSU will continue to follow Okay for DVT chemoprophylaxis Encourage ambulation Charges/Coding Procedures Integumentary 111xxx-113xx: 01580 Global Visit
[2023-10-30] MEDS: Glycopyrrolate 1 MG TABLET PO ×3 (06:16→23:27)
[2023-10-30 06:20] LABS: Absolute Lymphocyte Count 1.11 X10^3/uL (0.83-4.51); Absolute Neutrophil Count 6.1 X10^3/uL (2.0-7.7); Basophil# 0.02 X10^3/uL; Basophil% 0.3 % (0-1); Eosinophil# 0.01 X10^3/uL; Eosinophils% 0.1 % (0-5); Hematocrit 37.7 % (40-54); Hemoglobin 11.7 g/dL (13.0-16.5); Lymphocyte # 1.11 X10^3/ul (0.83-4.51); Lymphocyte % 14.1 % (19-41); Mean Corpuscular Hgb 26.5 pg (27.0-32.0); Mean Corpuscular Volume 85.5 fL (80-94); Mean Platelet Vol. 11.1 fl (6.2-12.0); Monocyte# 0.59 X10^3/uL; Monocyte% 7.5 % (0-10); NRBC Flagged by Analyzer 0 % (0-5); Neutrophil # 6.08 X10^3/uL (2.7-7.7); Neutrophil % 77.4 % (47-70); Platelet Count 141 K/mm3 (150-450); RBC Distribution Width CV 13.7 % (11.6-14.6); RBC Distribution Width SD 42.6 fl (35.1-43.9); Red Blood Count 4.41 M/mm3 (4.6-6.2); White Blood Count 7.9 K/mm3 (4.4-11.0)
[2023-10-30 06:53] LABS: Anion Gap 4 (5-15); BUN 9 mg/dL (7-18); BUN/Creat Ratio 11.8 RATIO (10-20); Calcium,Total 8.3 mg/dL (8.5-10.1); Chloride 114 mmol/L (98-107); Creatinine, Serum 0.76 mg/dL (0.70-1.30); EST Glomerular Filtration Rate 118 mL/min (>60); Est Glom Filt Rate - Afr Amer 143 mL/min (>60); Estimated Creatinine Clearance 174.64 ml/min; Glucose 124 mg/dL (74-106); Potassium 3.6 mmol/L (3.5-5.1); Sodium Level 144 mmol/L (136-145)
[2023-10-30] MEDS: Vancomycin HCl 1,500 MG in 0.9% Normal Saline (500mL Bag) 500 ML 250 MG IV ×3 (07:05→21:55)
--- NOTE | 2023-10-30 08:04 | PN.HOSP_ITS ---
Reason for Visit Reason for Visit: Diagnoses Elevated white blood cell count, unspecified (10/27/23) Obesity, unspecified (10/27/23) Bipolar disorder, unspecified (10/27/23) Pyogenic arthritis, unspecified (10/27/23) Monoarthritis, not elsewhere classified, unspecified site (10/27/23) Pain in left wrist (10/27/23) Ganglion, left wrist (10/27/23) Subjective Subjective Wrist is feeling better. Objective Data Objective Data Vital Signs: Vital Signs Temp Pulse Resp BP Pulse Ox O2 Del Method 36.6 C 92 18 137/85 H 97 Room Air 10/30/23 03:33 10/30/23 03:33 10/30/23 03:33 10/30/23 03:33 10/30/23 03:33 10/30/23 03:33 Oxygen Delivery Method Room Air Weight: 116.1 kg Body Mass Index (BMI) 31.1 Intake & Output: Intake and Output for Last 24 Hours 10/28/23 10/29/23 10/30/23 23:59 23:59 23:59 Intake Total 4389.66 / 4789.66 6607.58 / 6607.58 1032.34 / 1032.34 Balance 4389.66 / 4789.66 6607.58 / 6607.58 1032.34 / 1032.34 Lab / Micro Data 10/30/23 04:58 10/30/23 04:58 Labs: Laboratory Results - last 24 hr 10/30/23 04:58: WBC 7.9, RBC 4.41 L, Hgb 11.7 L, Hct 37.7 L, MCV 85.5, MCH 26.5 L, MCHC 31.0 L, RDW Std Deviation 42.6, RDW Coeff of Emily 13.7, Plt Count 141 L, MPV 11.1, Immature Gran % (Auto) 0.600, Neut % (Auto) 77.4 H, Lymph % (Auto) 14.1 L, [place] % (Auto) 7.5, Eos % (Auto) 0.1, Baso % (Auto) 0.3, Absolute Neuts (auto) 6.1, Absolute Lymphs (auto) 1.11, Nucleated RBC % 0, Sodium 144, Potassium 3.6, Chloride 114 H, Carbon Dioxide 26.0, Anion Gap 4 L, BUN 9, Creatinine 0.76, Estim Creat Clear Calc 174.64, Est GFR (MDRD) Af Amer 143, Est GFR (MDRD) Non-Af 118, BUN/Creatinine Ratio 11.8, Glucose 124 H, Calcium 8.3 L Micro: Microbiology 10/28/23 17:15 Tissue - Arm Left Gram Stain - Final 10/28/23 17:15 Tissue - Hand Gram Stain - Final 10/28/23 17:15 Tissue - Hand Wound Culture - Preliminary No growth-Final to follow 10/28/23 17:15 Wound Drainage - Aerobic & Anaerobic Swabs Gram Stain - Final 10/28/23 17:15 Wound Drainage - Aerobic & Anaerobic Swabs Wound Culture - Preliminary No growth-Final to follow 10/28/23 09:30 Fluid - Synovial (joint) Gram Stain - Final Physical Exam Const alert and no apparent distress HEENT head/scalp atraumatic and moist oral mucous membranes Resp normal respiratory effort and no retractions Extremity Extremity Narrative: Left hand and wrist bandaged, did not remove. Assessment & Plan Assessment/Plan (1) Septic arthritis: QUALIFIERS: Laterality: left Septic arthritis location: wrist S eptic arthritis organism: due to unspecified organism Qualified Code(s): M00.9 - Pyogenic arthritis, unspecified (2) Ganglion cyst of dorsum of left wrist: (3) Leukocytosis: QUALIFIERS: Leukocytosis type: unspecified Qualified Code(s): D 72.829 - Elevated white blood cell count, unspecified (4) Bipolar disorder: QUALIFIERS: Active/Remission status: remission status unspecified Qualified Code(s): F31.9 - Bipolar disorder, unspecified PLAN: Plan Septic Arthritis of the Left Wrist * Aspirated in the office. Cultures pending. * On vancomycin and ampicillin/sulbactam * Patient had arthrocentesis on the and . Then had IR arthrotomy and washout and excision of left wrist with possible ganglion 13. * Follow-up cultures * ID and PRS following. Chronic conditions * Bipolar disorder: Continue clozapine and lithium. [place]elling 0.6, which is within normal limits VTE prophylaxis with SCDs for now. Disposition: Pending cultures and determination of long-term antibiotics. Charges/Coding Visit Charges Inpatient E&M: 31209 Subs Hosp L1
[2023-10-30] MEDS: Lithium Carbonate 300mg Capsule 600 MG PO ×2 (09:59→23:27)
[2023-10-30] MEDS: Docusate Sodium 100 MG Capsule PO ×2 (09:59→23:27)
[2023-10-30 10:02] VITALS: BP 127/88; PULSE 92; RESP 18; TEMP 36.6; O2SAT 98
[2023-10-30 15:56] VITALS: BP 136/84; PULSE 86; RESP 16; TEMP 37.1; O2SAT 99
[2023-10-30] MEDS: Acetaminophen 325 MG Tablet 650 MG PO (16:34)
[2023-10-30] MEDS: oxyCODONE 5 MG Tablet PO (18:07)
[2023-10-30 19:46] VITALS: BP 125/90; PULSE 88; RESP 16; TEMP 37.1; O2SAT 97
--- NOTE | 2023-10-30 21:49 | PCM.RX.CS ---
Consult Antibiotic Management Pharmacy has been consulted to manage selected antibiotic: Vancomycin Type of Intervention Type of Consult: Follow-up Suspected Infection Suspected Infection: Sepsis Labs Labs: Sodium 144 mmol/L (136-145) 10/30/23 04:58 Potassium 3.6 mmol/L (3.5-5.1) 10/30/23 04:58 Chloride 114 mmol/L (98-107) H 10/30/23 04:58 Carbon Dioxide 26.0 mmol/L (21.0-32.0) 10/30/23 04:58 Anion Gap 4 (5-15) L 10/30/23 04:58 BUN 9 mg/dL (7-18) 10/30/23 04:58 Creatinine 0.76 mg/dL (0.70-1.30) 10/30/23 04:58 Est GFR (MDRD) Af Amer 143 mL/min (>60) 10/30/23 04:58 Est GFR (MDRD) Non-Af 118 mL/min (>60) 10/30/23 04:58 BUN/Creatinine Ratio 11.8 RATIO (10-20) 10/30/23 04:58 Glucose 124 mg/dL (74-106) H 10/30/23 04:58 Vancomycin Trough 18.0 ug/mL (5.0-15.0) H 10/30/23 20:40 Microbiology Microbiology: Microbiology 10/28/23 17:15 Tissue - Arm Left Gram Stain - Final 10/28/23 17:15 Tissue - Arm Left Wound Culture - Preliminary No growth-Final to follow 10/28/23 17:15 Tissue - Hand Gram Stain - Final 10/28/23 17:15 Tissue - Hand Wound Culture - Preliminary No growth-Final to follow 10/28/23 17:15 Wound Drainage - Aerobic & Anaerobic Swabs Gram Stain - Final 10/28/23 17:15 Wound Drainage - Aerobic & Anaerobic Swabs Wound Culture - Preliminary No growth-Final to follow 10/28/23 09:30 Fluid - Synovial (joint) Gram Stain - Final Dosing Weight Weight used for dosin kg Estimated Creatinine Clearance Estimated Creatinine Clearance: 175 Goal Trough Goal Trough: 15-20 mcg/mL Pharmacy Plan for Drug Dosing Pharmacy Plan for Drug Dosing: Vancomycin trough level of 18.0, drawn 8hrs post-dose, was within the target range of 15-20. This is the second trough within goal, so will continue dosing at 1500mg q8h and draw another trough in four days. Pharmacy Service will continue to monitor and adjust dosing as required. Follow-Up Labs Follow-Up Labs: Trough: Vancomycin Date/Time Labs Ordered Labs to be done on [date and time ordered]: 11/03/23 @2030
[2023-10-30] MEDS: cloZAPine 100 MG TABLET 600 MG PO (23:26)
[2023-10-31] MEDS: Ampicillin/Sulbactam 3 GM in 0.9% Normal Saline (100mL MB+) 100 ML IV ×5 (00:15→23:46)
[2023-10-31 02:17] VITALS: BP 137/88; PULSE 83; RESP 18; TEMP 36.6; O2SAT 97
[2023-10-31] MEDS: Vancomycin HCl 1,500 MG in 0.9% Normal Saline (500mL Bag) 500 ML 250 MG IV ×3 (04:42→20:55)
[2023-10-31 05:55] LABS: Anion Gap 5 (5-15); BUN 12 mg/dL (7-18); BUN/Creat Ratio 15.6 RATIO (10-20); Calcium,Total 8.9 mg/dL (8.5-10.1); Chloride 111 mmol/L (98-107); Creatinine, Serum 0.77 mg/dL (0.70-1.30); EST Glomerular Filtration Rate 117 mL/min (>60); Est Glom Filt Rate - Afr Amer 142 mL/min (>60); Estimated Creatinine Clearance 172.37 ml/min; Glucose 115 mg/dL (74-106); Potassium 4.1 mmol/L (3.5-5.1); Sodium Level 142 mmol/L (136-145)
[2023-10-31 06:00] VITALS: BMI 31.1
--- NOTE | 2023-10-31 06:08 | PCM.PN.SRG ---
Subjective Subjective Patient feels better. Wrist ROM improving. No pain this morning. Compliant with soaks. Objective Data Objective Data RUN DATE: 10/31/23 [facility], DEPARTMENT OF LABORATORIES PAGE 1 RUN TIME: 0607 Specimen Inquiry [address], [place], [address] PATIENT: LIZA DA SILVA LOC: LABSPEC U #: [id number] : 1980 AGE/SX: 43/M FACILITY: [facility] ROOM: RE10/27/[address]: Dr. Shahram Macias MD STATUS:REG CLI ED: DIS: ~ SPEC #: [id number] CANDI: 10/27/23-UNK STATUS: COMP REQ #: [id number] RECD: 10/27/23-[address]: Dr. Shahram Macias MD ENTERED: 10/27/23-[address]: ~ QUERIES: Specimen Source: WRIST Test Result Flag Adult Reference Range BD FLD CT+DIFF WBC, BF SOURCE/BF OTHER SYNOVIAL FLUID FROM LEFT WRIST. COLOR/BF RED APPEAR/BF CLOUDY BFTC# Insufficient quant. 10^3/ul RBC/BF Insufficient quant. 10^6/ul WBC/BF Insufficient quant. 10^3/uL NEEDED Previous reported result: QNS 10^3/uL Edited by: DELLA on 10/28/23:0746 AMENDED REPORT 10/28/23 0746 WBC/BF previously reported as: Insufficient quant. 10^3/uL NEEDED Previous reported result: 10^3/uL Edited by: DELLA on 10/28/23:0757 AMENDED REPORT 10/28/23 075 WBC/BF previously reported as: 10^3/uL NEEDED BFMDIF PMN 92 % LYMPH 4 % MONO/BF 4 % CRYSTALS, BF CRYSTALS/BF See PATH REV CRYSTAL RESULT IS PRELIMINARY. SEE PATH REVIEW FOR FINAL REPORT. SOURCE/BF SYNOVIAL LEFT WRIST PATH COMM/BF May follow BFM 2ND SPEC SEE COMMENT . INTERPRETATION OF RESULTS: Differentiation of transudate and exudate fluid: TRANSUDATE EXUDATE Color- Clear,straw colored Clear,turbid,bloody,purulent RBCs- Usually none to few Often present in high numbers WBCs- Usually none to few Often present in high numbers DIFF Few lymphocytes or Lymphocytes, neutrophils, and Count- mesothelial cells. polymorphonuclear cells . PATH REV Reviewed This case was discussed with Dr. Macias by Dwain- trasncriptionist- on 10/28/2023. Previous reported result: Will follow Edited by: MEGHANN on 10/28/23:0945 Negative for malignant cells and crystals Acute inflammation Numerous organisms consistent with bacteria are noted Gave a verbal result to Dr. Macias on 10/28/2023 AMENDED REPORT 10/28/23 0945 PATH REV previously reported as: Will follow Previous reported result: Reviewed Edited by: MEGHANN on 10/28/23:1003 This case was discussed with Dr. Macias by Dwain *Feed Inspection Supervisor* on 10/28/2023 Layo Jenkins M.D. 10/28/23 AMENDED REPORT 10/28/23 1003 PATH REV previously reported as: Reviewed Vital Signs: Vital Signs Temp Pulse Resp BP Pulse Ox O2 Del Method 97.8 F 83 18 137/88 H 97 Room Air 10/31/23 02:17 10/31/23 02:17 10/31/23 02:17 10/31/23 02:17 10/31/23 02:17 10/31/23 02:17 Oxygen Delivery Method Room Air Weight: 255 lb 15.307 oz Body Mass Index (BMI) 31.1 Intake & Output: Intake and Output for Last 24 Hours 10/29/23 10/30/23 10/31/23 23:59 23:59 23:59 Intake Total 6607.58 / 6607.58 4103.84 / 4103.84 642 / 642 Balance 6607.58 / 6607.58 4103.84 / 4103.84 642 / 642 Lab / Micro Data 10/30/23 04:58 10/31/23 05:24 Labs: Laboratory Results - last 24 hr 10/30/23 04:58: WBC 7.9, RBC 4.41 L, Hgb 11.7 L, Hct 37.7 L, MCV 85.5, MCH 26.5 L, MCHC 31.0 L, RDW Std Deviation 42.6, RDW Coeff of Emily 13.7, Plt Count 141 L, MPV 11.1, Immature Gran % (Auto) 0.600, Neut % (Auto) 77.4 H, Lymph % (Auto) 14.1 L, [place] % (Auto) 7.5, Eos % (Auto) 0.1, Baso % (Auto) 0.3, Absolute Neuts (auto) 6.1, Absolute Lymphs (auto) 1.11, Nucleated RBC % 0, Sodium 144, Potassium 3.6, Chloride 114 H, Carbon Dioxide 26.0, Anion Gap 4 L, BUN 9, Creatinine 0.76, Estim Creat Clear Calc 174.64, Est GFR (MDRD) Af Amer 143, Est GFR (MDRD) Non-Af 118, BUN/Creatinine Ratio 11.8, Glucose 124 H, Calcium 8.3 L 10/30/23 20:40: Vancomycin Trough 18.0 H 10/31/23 05:24: Sodium 142, Potassium 4.1, Chloride 111 H, Carbon Dioxide 26.0, Anion Gap 5, BUN 12, Creatinine 0.77, Estim Creat Clear Calc 172.37, Est GFR (MDRD) Af Amer 142, Est GFR (MDRD) Non-Af 117, BUN/Creatinine Ratio 15.6, Glucose 115 H, Calcium 8.9 Micro: Microbiology 10/28/23 17:15 Tissue - Arm Left Gram Stain - Final 10/28/23 17:15 Tissue - Arm Left Wound Culture - Preliminary No growth-Final to follow 10/28/23 17:15 Tissue - Hand Gram Stain - Final 10/28/23 17:15 Tissue - Hand Wound Culture - Preliminary No growth-Final to follow 10/28/23 17:15 Wound Drainage - Aerobic & Anaerobic Swabs Gram Stain - Final 10/28/23 17:15 Wound Drainage - Aerobic & Anaerobic Swabs Wound Culture - Preliminary No growth-Final to follow 10/28/23 09:30 Fluid - Synovial (joint) Gram Stain - Final Physical Exam Narrative Left upper extremity Dressing and splint removed. No redness or swelling of the left wrist. Incision partially closed with drain. No purulence from the drain. Started him on a Dial soap soak. Motor: Improved ROM today. Able to bend/extend wrist without much pain. Able to extend thumb IP joint. Sensation: Sensation to light touch intact on the dorsum of the left hand. Extremity Extremity Narrative: SCDs on and activated Assessment & Plan Assessment/Plan (1) Septic arthritis: QUALIFIERS: Laterality: left Septic arthritis location: wrist Septic arthritis organism: due to unspecified organism Qualified Code(s): M00.9 - Pyogenic arthritis, unspecified PLAN: Continue broad-spectrum antibiotics as we await culture data 3 times per day Dial soap soaks of the left wrist Elevate left upper extremity Continue splint with slight flexion of the wrist. OT eval for ROM PSU will continue to follow Okay for DVT chemoprophylaxis Encourage ambulation Charges/Coding Procedures Integumentary 111xxx-113xx: 61569 Global Visit
[2023-10-31] MEDS: Glycopyrrolate 1 MG TABLET PO ×3 (07:01→23:46)
[2023-10-31 08:22] VITALS: BP 127/80; PULSE 78; RESP 16; TEMP 36.5; O2SAT 96
[2023-10-31] MEDS: 0.9% Saline Lock 10 ML Syringe IV ×3 (08:35→16:24)
[2023-10-31] MEDS: Lithium Carbonate 300mg Capsule 600 MG PO ×2 (10:00→23:45)
[2023-10-31] MEDS: Docusate Sodium 100 MG Capsule PO ×2 (10:00→23:45)
--- NOTE | 2023-10-31 12:48 | PCM.PROGNOTE ---
Subjective Subjective Patient seen and examined. He had no active complaints. He feels the pain in his left hand was getting better and he was able to make more of a fist with his left hand. He denied any fever or chills and review of systems otherwise negative. He has remained hemodynamically stable. Objective Data Objective Data Vital Signs: Vital Signs Temp Pulse Resp BP Pulse Ox O2 Del Method 97.7 F L 78 16 127/80 H 96 Room Air 10/31/23 08:22 10/31/23 08:22 10/31/23 08:22 10/31/23 08:22 10/31/23 08:22 10/31/23 08:23 Oxygen Delivery Method Room Air Weight: 255 lb 11.779 oz Body Mass Index (BMI) 31.1 Intake & Output: Intake and Output for Last 24 Hours 10/29/23 10/30/23 10/31/23 23:59 23:59 23:59 Intake Total 6607.58 / 6607.58 4103.84 / 4103.84 1684 / 1684 Balance 6607.58 / 6607.58 4103.84 / 4103.84 1684 / 1684 Lab / Micro Data 10/30/23 04:58 10/31/23 05:24 Labs: Laboratory Results - last 24 hr 10/30/23 20:40: Vancomycin Trough 18.0 H 10/31/23 05:24: Sodium 142, Potassium 4.1, Chloride 111 H, Carbon Dioxide 26.0, Anion Gap 5, BUN 12, Creatinine 0.77, Estim Creat Clear Calc 172.37, Est GFR (MDRD) Af Amer 142, Est GFR (MDRD) Non-Af 117, BUN/Creatinine Ratio 15.6, Glucose 115 H, Calcium 8.9 Micro: Microbiology 10/28/23 09:30 Fluid - Synovial (joint) Gram Stain - Final 10/28/23 09:30 Fluid - Synovial (joint) Body Fluid Culture - Preliminary No growth-Final to follow 10/28/23 09:30 Fluid - Synovial (joint) Anaerobic Culture - Preliminary No growth in 48 hours. 10/28/23 17:15 Tissue - Hand Gram Stain - Final 10/28/23 17:15 Tissue - Hand Wound Culture - Preliminary No growth-Final to follow 10/28/23 17:15 Tissue - Hand Anaerobic Culture - Preliminary No growth in 48 hours. 10/28/23 17:15 Wound Drainage - Aerobic & Anaerobic Swabs Gram Stain - Final 10/28/23 17:15 Wound Drainage - Aerobic & Anaerobic Swabs Wound Culture - Preliminary No growth-Final to follow 10/28/23 17:15 Wound Drainage - Aerobic & Anaerobic Swabs Anaerobic Culture - Preliminary No growth in 48 hours. 10/28/23 17:15 Tissue - Arm Left Gram Stain - Final 10/28/23 17:15 Tissue - Arm Left Wound Culture - Preliminary No growth-Final to follow 10/28/23 17:15 Tissue - Arm Left Anaerobic Culture - Preliminary No growth in 48 hours. Physical Exam Const alert, oriented x3 and no apparent distress General Appearance: cooperative and well developed HEENT normocephalic, head/scalp atraumatic and moist oral mucous membranes Eyes PERRL and EOMs intact bilaterally Neck no lymphadenopathy and supple Lymph Lymphatic: no lymphadenopathy noted Resp normal respiratory effort, normal air movement and clear to auscultation bilaterally Cardio regular rate, regular rhythm, S1 normal heart sound, S2 normal heart sound and no murmurs GI normal to inspection, nondistended, normoactive bowel sounds, soft to palpation, non-tender and non-distended Extremity Extremity Narrative: Left hand wrapped in bandage and in elevated position. Skin Skin Narrative: left hand wrapped in bandage Neuro CN's II-XII intact bilaterally and no focal motor deficits Motor Exam: strength 5/5 throughout Psych thought process normal and cooperative Appearance: appropriate Assessment & Plan Assessment/Plan (1) Septic arthritis: QUALIFIERS: Septic arthritis location: wrist Septic arthritis organism: due to unspecified organism Laterality: left Qualified Code(s): M00.9 - Pyogenic arthritis, unspecified PLAN: Plan #Septic arthritis of the left wrist sp arthrotomy and washout with excision of left wrist. ID and plastic surgery on board; await ID recs. PT/OT on board on IV vancomycin and unasyn also had it aspirated in the office and cultures are pending. per plastic surgery, to have dial soap soaks of left wrist 3x daily PT/OT on board. wound cultures show no growth so far. #Bipolar disorder: on clozapine and lithium. DVT prophylaxis: SCDs Charges/Coding Visit Charges Inpatient E&M: 58414 Subs Hosp L2
--- NOTE | 2023-10-31 14:07 | PCM.PN.ID ---
Physical Exam Narrative Feeling better, wrist less sore, no fever, no n/v/d. Const alert, oriented x3 and no apparent distress Resp normal air movement and clear to auscultation bilaterally Cardio regular rate and regular rhythm GI soft to palpation, non-tender and non-distended Skin Skin Narrative: L wrist wrapped ID ID: Route of nutrition/ use of supplements: [] Nutritional Intake: [] IV Site: [] Wilkes Catheter: [] Assessment & Plan Assessment/Plan (1) Septic arthritis: QUALIFIERS: Septic arthritis location: wrist Septic arthritis organism: due to unspecified organism Laterality: left Qualified Code(s): M00.9 - Pyogenic arthritis, unspecified PLAN: OR 10/28/[address] Macias, surg cx neg. Aspiration cxs neg. Feeling better, will cont vanc/unasyn. Plan on discharge home with po abx for 3-4 week total course. Will follow
[2023-10-31 15:23] VITALS: BP 127/77; PULSE 80; RESP 18; TEMP 36.7; O2SAT 96
[2023-10-31] MEDS: oxyCODONE 5 MG Tablet PO (19:44)
[2023-10-31 20:54] VITALS: BP 124/79; PULSE 88; RESP 16; TEMP 36.7; O2SAT 96
[2023-10-31] MEDS: cloZAPine 100 MG TABLET 600 MG PO (23:45)
[2023-10-31 23:56] VITALS: BP 139/90; PULSE 91; RESP 16; TEMP 36.6; O2SAT 97
[2023-11-01] MEDS: Vancomycin HCl 1,500 MG in 0.9% Normal Saline (500mL Bag) 500 ML 250 MG IV ×2 (05:19→14:14)
[2023-11-01] MEDS: Glycopyrrolate 1 MG TABLET PO (05:30)
[2023-11-01 05:32] VITALS: BP 124/90; PULSE 78; RESP 18; TEMP 36.5; O2SAT 94
[2023-11-01 05:35] VITALS: BMI 30.3
[2023-11-01] MEDS: Ampicillin/Sulbactam 3 GM in 0.9% Normal Saline (100mL MB+) 100 ML IV ×2 (07:35→12:18)
[2023-11-01] MEDS: 0.9% Normal Saline (250mL Bag) 250 ML 15 ML IV (07:35)
[2023-11-01 08:26] LABS: Anion Gap 4 (5-15); BUN 13 mg/dL (7-18); BUN/Creat Ratio 15.3 RATIO (10-20); Calcium,Total 9.3 mg/dL (8.5-10.1); Chloride 110 mmol/L (98-107); Creatinine, Serum 0.85 mg/dL (0.70-1.30); EST Glomerular Filtration Rate 105 mL/min (>60); Est Glom Filt Rate - Afr Amer 127 mL/min (>60); Estimated Creatinine Clearance 154.12 ml/min; Glucose 113 mg/dL (74-106); Potassium 4.1 mmol/L (3.5-5.1); Sodium Level 141 mmol/L (136-145)
[2023-11-01 08:30] LABS: Absolute Lymphocyte Count 0.97 X10^3/uL (0.83-4.51); Absolute Neutrophil Count 5.8 X10^3/uL (2.0-7.7); Basophil# 0.05 X10^3/uL; Basophil% 0.7 % (0-1); Hematocrit 40.2 % (40-54); Hemoglobin 12.5 g/dL (13.0-16.5); Lymphocyte # 0.97 X10^3/ul (0.83-4.51); Lymphocyte % 13.1 % (19-41); Mean Corp Hgb Conc 31.1 g/dL (32-36); Mean Corpuscular Hgb 26.3 pg (27.0-32.0); Mean Corpuscular Volume 84.6 fL (80-94); Mean Platelet Vol. 10.9 fl (6.2-12.0); Monocyte# 0.45 X10^3/uL; Monocyte% 6.1 % (0-10); NRBC Flagged by Analyzer 0 % (0-5); Neutrophil # 5.83 X10^3/uL (2.7-7.7); Neutrophil % 78.7 % (47-70); Platelet Count 170 K/mm3 (150-450); RBC Distribution Width CV 13.4 % (11.6-14.6); RBC Distribution Width SD 41.6 fl (35.1-43.9); Red Blood Count 4.75 M/mm3 (4.6-6.2); White Blood Count 7.4 K/mm3 (4.4-11.0)
[2023-11-01 08:48] VITALS: BP 139/86; PULSE 81; RESP 18; TEMP 36.4; O2SAT 96
--- NOTE | 2023-11-01 09:31 | PN.SURG_ITS ---
Subjective Subjective Patient feels better. Wrist ROM improving. No pain this morning. Compliant with soaks. Working with occupational therapy on finger ROM. Referral to OT for a splint Objective Data Objective Data RUN DATE: 10/31/23 [facility], DEPARTMENT OF LABORATORIES PAGE 1 RUN TIME: 06 Specimen Inquiry [address], [place], [address] PATIENT: LIZA DA SILVA LOC: LABSPEC U #: [id number] : 1980 AGE/SX: 43/M FACILITY: [facility] ROOM: R E10/27/[address]: Dr. Shahram Macias MD STATUS:REG CLI ED: DIS: ~ SPEC #: [id number] CANDI: 10/27/23-UNK STATUS: COMP REQ #: [id number] RECD: 10/27/23-[address]: Dr. Shahram Macias MD ENTERED: 10/27/23-[address]: ~ QUERIES: Specimen Source: WRIST Test Result Flag Adult Reference Range BD FLD CT+DIFF WBC, BF SOURCE/BF OTHER SYNOVIAL FLUID FROM LEFT WRIST. COLOR/BF RED APPEAR/BF CLOUDY BFTC# Insufficient quant. 10^3/ul RBC/BF Insufficient quant. 10^6/ul WBC/BF Insufficient quant. 10^3/uL NEEDED Previous reported result: QNS 10^3/uL Edited by: [employer] on 10/28/23:0746 AMENDED REPORT 10/28/23 0746 WBC/BF previously reported as: Insufficient quant. 10^3/uL NEEDED Previous reported result: 10^3/uL Edited by: [employer] on 10/28/23:0757 AMENDED REPORT 10/28/23 075 WBC/BF previously reported as: 10^3/uL NEEDED BFMDIF PMN 92 % LYMPH 4 % MONO/BF 4 % CRYSTALS, BF CRYSTALS/BF See PATH REV CRYSTAL RESULT IS PRELIMINARY. SEE PATH REVIEW FOR FINAL REPORT. SOURCE/BF SYNOVIAL LEFT WRIST PATH COMM/BF May follow [facility] 2ND SPEC SEE COMMENT . INTERPRETATION OF RESULTS: Differentiation of transudate and exudate fluid: TRANSUDATE EXUDATE Color- Clear,straw colored Clear,turbid,bloody,purulent RBCs- Usually none to few Often present in high numbers WBCs- Usually none to few Often present in high numbers DIFF Few lymphocytes or Lymphocytes, neutrophils, and Count- mesothelial cells. polymorphonuclear cells . PATH REV Reviewed This case was discussed with Dr. Macias by Dwain- trasncriptionist- on 10/28/2023. Previous reported result: Will follow Edited by: JESSICA on 10/28/23:0945 Negative for malignant cells and crystals Acute inflammation Numerous organisms consistent with bacteria are noted Gave a verbal result to Dr. Macias on 10/28/2023 AMENDED REPORT 10/28/23 0945 PATH REV previously reported as: Will follow Previous reported result: Reviewed Edited by: MEGHANN on 10/28/23:1003 This case was discussed with Dr. Macias by Dwain *[employer]* on 10/28/2023 Layo Jenkins M.D. 10/28/23 AMENDED REPORT 10/28/23 1003 PATH REV previously reported as: Reviewed Vital Signs: Vital Signs Temp Pulse Resp BP Pulse Ox O2 Del Method 97.5 F L 81 18 139/86 H 96 Room Air 11/01/23 08:48 11/01/23 08:48 11/01/23 08:48 11/01/23 08:48 11/01/23 08:48 11/01/23 08:53 Oxygen Delivery Method Room Air Weight: 248 lb 14.43 oz Body Mass Index (BMI) 30.3 Intake & Output: Intake and Output for Last 24 Hours 10/30/23 10/31/23 11/01/23 23:59 23:59 23:59 Intake Total 4103.84 / 4103.84 2968 / 4068 1842.25 / 1841.25 Balance 4103.84 / 4103.84 2968 / 4068 184. / 1841. Lab / Micro Data 11/01/23 06:45 11/01/23 06:45 Labs: Laboratory Results - last 24 hr 11/01/23 06:45: WBC 7.4, RBC 4.75, Hgb 12.5 L, Hct 40.2, MCV 84.6, MCH 26.3 L, M CHC 31.1 L, RDW Std Deviation 41.6, RDW Coeff of Emily 13.4, Plt Count 170, MPV 10.9, Immature Gran % (Auto) 1.400 H, Neut % (Auto) 78.7 H, Lymph % (Auto) 13.1 L, Kershaw % (Auto) 6.1, Eos % (Auto) 0.0, Baso % (Auto) 0.7, Absolute Neuts (auto) 5.8, Absolute Lymphs (auto) 0.97, Nucleated RBC % 0, Sodium 141, Potassium 4.1, Chloride 110 H, Carbon Dioxide 27.0, Anion Gap 4 L, BUN 13, Creatinine 0.85, Estim Creat Clear Calc 154.12, Est GFR (MDRD) Af Amer 127, Est GFR (MDRD) Non-Af 105, BUN/Creatinine Ratio 15.3, Glucose 113 H, Calcium 9.3 Micro: Microbiology 10/28/23 17:15 Tissue - Arm Left Gram Stain - Final 10/28/23 17:15 Tissue - Arm Left Wound Culture - Final No growth aerobically. 10/28/23 17:15 Tissue - Arm Left Anaerobic Culture - Preliminary No growth in 48 hours. 10/28/23 17:15 Tissue - Hand Gram Stain - Final 10/28/23 17:15 Tissue - Hand Wound Culture - Final No growth aerobically. 10/28/23 17:15 Tissue - Hand Anaerobic Culture - Preliminary No growth in 48 hours. 10/28/23 17:15 Wound Drainage - Aerobic & Anaerobic Swabs Gram Stain - Final 10/28/23 17:15 Wound Drainage - Aerobic & Anaerobic Swabs Wound Culture - Preliminary No growth-Final to follow 10/28/23 17:15 Wound Drainage - Aerobic & Anaerobic Swabs Anaerobic Culture - Preliminary No growth in 48 hours. 10/28/23 09:30 Fluid - Synovial (joint) Gram Stain - Final 10/28/23 09:30 Fluid - Synovial (joint) Body Fluid Culture - Preliminary No growth-Final to follow 10/28/23 09:30 Fluid - Synovial (joint) Anaerobic Culture - Preliminary No growth in 48 hours. Radiography Diagnostic Testing: Radiology Impression Soft Tissue Ultrasound 10/28/23 08:31 IMPRESSION: Nonspecific nodule within the dorsal surface of the left wrist not typical appearance for ganglion. Clinical correlation recommended Electronically Signed: John Henderson MD at 23:09 EDT , Physical Exam Narrative Left upper extremity No pain with axial loading of the wrist. Dressing and splint removed. Drain removed. No redness or swelling of the left wrist. No purulence. Started him on a Dial soap soak. Motor: Improved ROM today Able to extend thumb IP joint. Sensation: Sensation to light touch intact on the dorsum of the left hand. Extremity Extremity Narrative: SCDs on and activated Assessment & Plan Assessment/Plan (1) Septic arthritis: QUALIFIERS: Septic arthritis location: wrist Septic arthritis organism: due to unspecified organism Laterality: left Qualified Code(s): M 00.9 - Pyogenic arthritis, unspecified PLAN: Continue antibiotics per ID as we await culture data 3 times per day Dial soap soaks of the left wrist with iodoform packing Elevate left upper extremity OT eval for ROM and splinting (will get a splint today with OT) F/u with plastics on , 03 Nov 2023 for check Charges/Coding Procedures Integumentary
[2023-11-01] MEDS: 0.9% Saline Lock 10 ML Syringe IV ×2 (09:49→12:18)
[2023-11-01] MEDS: Lithium Carbonate 300mg Capsule 600 MG PO (09:49)
[2023-11-01] MEDS: Docusate Sodium 100 MG Capsule PO (09:49)
[2023-11-01] MEDS: Polyethylene Glycol 3350 17 GM PACKET PO (09:51)
--- NOTE | 2023-11-01 10:01 | PCM.PN.ID ---
Physical Exam Narrative feeling better, no fever, no n/v/d. Wrist much improved Const alert and no apparent distress General Appearance: cooperative Resp normal air movement and clear to auscultation bilaterally Cardio regular rate and regular rhythm GI soft to palpation, non-tender and non-distended Skin Skin Narrative: L wrist, packing in place, no redness ID ID: Route of nutrition/ use of supplements: [] Nutritional Intake: [] IV Site: [] Wilkes Catheter: [] Assessment & Plan Assessment/Plan (1) Septic arthritis: QUALIFIERS: Septic arthritis location: wrist Septic arthritis organism: due to unspecified organism Laterality: left Qualified Code(s): M00.9 - Pyogenic arthritis, unspecified PLAN: OR 10/28/[address] Macias, surg cx neg. Aspiration cxs neg. Feeling better, will cont vanc/unasyn while inpatient. Plan on discharge home with po abx for 3 more weeks of doxy 100mg bid and duricef 1gm bid. Will follow, d/w primary team
--- NOTE | 2023-11-01 13:41 | DCINST_ITS ---
Discharge Instructions Diet Discharge Diet: Low fat / Low cholesterol Activity Discharge Activity: Return to Normal Activity Dressing / Incision Call your doctor if you observe: Fever of 101 or Higher, Shortness of breath, Dizziness, Swelling in the ankles, Chest pain and Uncontrolled pain Follow Up Care Test Results: Test results from this visit will be discussed in further detail at your follow- up appointment, if applicable. Discharge Plan Admission Admit Date/Time: 10/27/23 20:36 Primary Reason for Your Visit: septic arthritis of the left wrist Attending Provider: Sivan Wright Primary Care Provider: Sharla Mckenzie Consulting Providers: Josemanuel Palomares; Shahram Mehta; Shahram Macias; Masood Pérez Instructions Patient Instructions: Septic Arthritis Ch Additional Instructions / Restrictions: Operations Performed: Wrist wash out Instructions for My Care at Home or Healthcare Facility The following instructions will help you know what to expect in the days following surgery. These are general instructions. Your surgeon and therapist may give you special instructions, which vary to some degree based on your specific procedure -- follow those as directed. Do not, however, hesitate to call if you have any questions or concerns. Splint Care/Dressing Care/Wound Care * Dressings - You may have a dressing over the operative site. Apply dry dressing and splint after the soaks. Juli, the therapist, will be reaching out to you for an appointment for splinting evaluation. * For the wound care, do 20 minute dial soap soaks followed by packing of the incisions with iodoform (like the nursing staff showed). ? Activities * No using the left hand for any lifting. .? Pain Control/Medications * If you received an anesthetic block, your hand or arm may be numb for several hours. You will be discharged to home with medications, including an oral pain medication (analgesic). Rest and elevation are still one of the most important factors for pain control. Take your pain medication as needed, but do not wait for the pain to become out of control. * For severe pain, you may take prescription pain medication as directed, but please note that this may also contain Tylenol (e.g. Percocet). Do not take more than 4000mg of Tylenol (acetaminophen) from all sources daily.? * Pain medication may cause some lethargy, nausea, and or constipation. You should not drive/operate dangerous machinery while taking these medications. If these or other symptoms become significantly problematic, please your surgeon's office. * If prescribed oral antibiotics (Keflex, Clindamycin, or others), please take prescription for full duration as instructed. You should not have any pills remaining once completed (refills are written for your convenience should the course need to be extended, but generally they are not required). Diet (what I can eat): Resume normal Follow up: Follow up with me in clinic on Tuesday, 03 Nov 2023 Follow-up appointment reminders:? (A list of any scheduled appointments is at the end of this document)? At your earliest convenience, please call [phone] to confirm/schedule a follow-up appointment with me in clinic. When to call your surgeon: * If any signs of surgical site infection develop: redness, pus, pain, increased swelling or foul odor at the incision site, fever, cold and clammy skin, or confusion. * Consistent temperature above 101?F (38.3?C). * The affected area gets swollen or much more painful. * You have excessive bleeding from surgical site (soaking through). If you experience difficulty breathing and/or shortness of breath, seek immediate medical attention. If experiencing any of the above complications or if you have any questions, call [phone] Discharge Orders/Prescriptions Prescriptions: New oxycodone 5 mg Tablet 5 mg PO Q4H PRN PRN (Reason: Pain Score 4-10) 3 Days Qty: 18 0RF doxycycline hyclate 100 mg tablet 100 mg PO BID 21 Days Qty: 42 0RF cefadroxil 1 gram tablet 1,000 mg PO BID 21 Days Qty: 42 0RF Continued docusate sodium [Colace] 100 mg capsule 100 mg PO BID glycopyrrolate 1 mg tablet 1 mg PO TID clozapine 100 mg tablet 600 mg PO QHS Patient Comments: PT STATES HE IS HAVING TROUBLE GETTING NHAN TO CALL IN REFILL. WILL RUN OUT SOON lithium carbonate 600 mg capsule 600 mg PO BID Referrals / Follow Up: Sharla Mckenzie MD [Primary Care Provider] - Within 1 Week Shahram Macias MD [Med Staff - Active Staff] - Within 1 Week Disposition Disposition (needs filled in before D/C Order can be placed): Home, Self Care
--- NOTE | 2023-11-01 13:43 | PCM.DC.SUM ---
Providers Date of Admission: 10/27/23 Date of Discharge: 11/01/23 Primary Care Physician: Sharla Mckenzie MD Consultations 10/28/23 07:11 Consult: Plastic Surgery Routine Consulting Provider: Shahram Macias Reason for Consult: left wrist septic arthritis. EMERGENT Consult: No Notified: Yes Date Notified: 10/28/23 Time Notified: 07:11 Method of Notification: Text 10/28/23 07:17 Consult: Infectious Disease Routine Consulting Provider: Shahram Mehta Reason for Consult: septic arthritis EMERGENT Consult: No Notified: Yes Date Notified: 10/28/23 Time Notified: 07:17 Method of Notification: Text Reason For Visit: SEPTIC ARTHRITIS OF THE LEFT WRIST Diagnosis Discharge Diagnosis (1) Septic arthritis: Status: Acute Code(s): M00.9 - Pyogenic arthritis, unspecified Qualifiers: Laterality: left Septic arthritis location: wrist Septic arthritis organism: due to unspecified organism Qualified Code(s): M00.9 - Pyogenic arthritis, unspecified Plan #Septic arthritis of the left wrist sp arthrotomy and washout with excision of left wrist. ID and plastic surgery on board; await ID recs. PT/OT on board on IV vancomycin and unasyn also had it aspirated in the office and cultures are pending. per plastic surgery, to have dial soap soaks of left wrist 3x daily PT/OT on board. wound cultures show no growth so far. #Bipolar disorder: on clozapine and lithium. DVT prophylaxis: SCDs Medications at Discharge Home Medications clozapine 100 mg tablet 600 mg PO QHS 10/03/23 glycopyrrolate 1 mg tablet 1 mg PO TID 10/03/23 lithium carbonate 600 mg capsule 600 mg PO BID 10/03/23 docusate sodium 100 mg capsule (Colace) 100 mg PO BID 10/20/23 cefadroxil 1 gram tablet 1,000 mg PO BID 3 weeks #42 tabs 11/01/23 doxycycline hyclate 100 mg tablet 100 mg PO BID 3 weeks #42 tabs 11/01/23 oxycodone 5 mg tablet 5 mg PO Q4H PRN PRN Pain Score 4-10 3 days #18 tabs 11/01/23 Hospital Course Procedures None Summary of Care Provided Minutes Spent on Discharge: 55 Hospital Course: Patient is a 43-year-old male with a past medical history as outlined which includes bipolar disorder and a ganglion of the left wrist was admitted through the ED on 10/27/2023 with worsening redness and swelling of the left wrist. His symptoms are started in September 2023 when he says a doctor in an ER he went to try to aspirate was thought to be a dorsal left wrist abscess. He was subsequently given oral doxycycline. However his symptoms did not improve despite taking the doxycycline and he had increased pain and swelling of the left wrist. He initially presented to plastic surgery prior to this admission and he had an arthrocentesis with purulent fluid noted consistent with suspected septic arthritis of the left wrist. He also had leukocytosis of 12.3. He was therefore brought into the ED to be admitted and managed for probable septic arthritis of the left wrist, with plans for subsequent I&D. He was started on empiric vancomycin and ampicillin. Of note he did not have any fever or chills, nausea vomiting or any such symptoms. ID was also consulted. He had aspiration of the left wrist joint as well as left wrist arthrotomy and washout and excision of possible ganglion of the left wrist by plastic surgery on 10/28/2023. Samples of the fluid was sent for culture. ID was also consulted. He was continued on his antibiotics. Wound cultures done showed no growth but according to plastic surgery, he was informed by pathology that there were bacteria in the sample sent to pathology. Patient did well and pain improved. He was discharged home on 11/01/2023 on a 3 week course of p.o. cefadroxil and as well as p.o. doxycycline. He was also given a prescription for p.o. oxycodone 5 mg every 4 hours as needed for total of 18 tablets for 3 days. OARRS score was checked and no red flags were seen. Patient was seen and examined prior to discharge. He felt well. He was having his Dial hand soaks as prescribed by plastic surgery. Patient asked if I could write him a prescription for his p.o. clozapine which he took for his bipolar disorder. He said he had been trying to get through to his psychiatric team agreement [facility] since last week but with no success. He said he had only 2 days of the medication left. He requested that I check to see if it is our EMS had been updated before. I did look into whether I could prescribe clozapine for him and it turns out that I would have to be a certified of the clozapine risk evaluation and mitigation strategy program in order to be able to prescribe clozapine. I counseled patient that due to this I would not be able to prescribe the clozapine for him and he would need to follow-up with his psychiatry team at [facility] as soon as possible for him to get a refill of his medication. Patient expressed understanding. Physical Exam Const alert, oriented x3 and no apparent distress General Appearance: cooperative, comfortable, well kempt and well developed Orientation / Consciousness: awake HEENT normocephalic, head/scalp atraumatic, hearing grossly normal bilaterally and moist oral mucous membranes Mouth: oral and palatal mucosa normal Eyes PERRL and EOMs intact bilaterally Neck no lymphadenopathy and supple Lymph Lymphatic: no lymphadenopathy noted Resp normal respiratory effort, normal air movement, no retractions, no use of accessory muscles and clear to auscultation bilaterally Cardio regular rate, regular rhythm, S1 normal heart sound, S2 normal heart sound and no murmurs GI normal to inspection, nondistended, normoactive bowel sounds, soft to palpation, non-tender and non-distended GI Narrative: Obese. Extremity Extremity Narrative: left hand being soaked in bandage; surgical site looks clean, with mild granulation tissue at site of stitches, no erythema or discharge. Skin Skin Narrative: as under extremities Neuro oriented x3, CN's II-XII intact bilaterally, moves all extremities and no focal motor deficits Sensorium / Orientation: awake, alert, oriented to person, oriented to place and oriented to time Speech: speech normal Motor Exam: strength 5/5 throughout Psych thought process normal, cooperative and affect normal Appearance: appropriate Weight / BMI Weight Weight: 248 lb 14.43 oz Body Mass Index (BMI) 30.3 ABG / Lab / Microbiology Data 11/01/23 06:45 11/01/23 06:45 Laboratory: Laboratory Results - last 24 hr 11/01/23 06:45: WBC 7.4, RBC 4.75, Hgb 12.5 L, Hct 40.2, MCV 84.6, MCH 26.3 L, MCHC 31.1 L, RDW Std Deviation 41.6, RDW Coeff of Emily 13.4, Plt Count 170, MPV 10.9, Immature Gran % (Auto) 1.400 H, Neut % (Auto) 78.7 H, Lymph % (Auto) 13.1 L, [place] % (Auto) 6.1, Eos % (Auto) 0.0, Baso % (Auto) 0.7, Absolute Neuts (auto) 5.8, Absolute Lymphs (auto) 0.97, Nucleated RBC % 0, Sodium 141, Potassium 4.1, Chloride 110 H, Carbon Dioxide 27.0, Anion Gap 4 L, BUN 13, Creatinine 0.85, Estim Creat Clear Calc 154.12, Est GFR (MDRD) Af Amer 127, Est GFR (MDRD) Non-Af 105, BUN/Creatinine Ratio 15.3, Glucose 113 H, Calcium 9.3 Microbiology: Microbiology 10/28/23 17:15 Tissue - Arm Left Gram Stain - Final 10/28/23 17:15 Tissue - Arm Left Wound Culture - Final No growth aerobically. 10/28/23 17:15 Tissue - Arm Left Anaerobic Culture - Preliminary No growth in 48 hours. 10/28/23 17:15 Tissue - Hand Gram Stain - Final 10/28/23 17:15 Tissue - Hand Wound Culture - Final No growth aerobically. 10/28/23 17:15 Tissue - Hand Anaerobic Culture - Preliminary No growth in 48 hours. 10/28/23 17:15 Wound Drainage - Aerobic & Anaerobic Swabs Gram Stain - Final 10/28/23 17:15 Wound Drainage - Aerobic & Anaerobic Swabs Wound Culture - Preliminary No growth-Final to follow 10/28/23 17:15 Wound Drainage - Aerobic & Anaerobic Swabs Anaerobic Culture - Preliminary No growth in 48 hours. 10/28/23 09:30 Fluid - Synovial (joint) Gram Stain - Final 10/28/23 09:30 Fluid - Synovial (joint) Body Fluid Culture - Preliminary No growth-Final to follow 10/28/23 09:30 Fluid - Synovial (joint) Anaerobic Culture - Preliminary No growth in 48 hours. Radiography Diagnostic Testing: Radiology Impression Soft Tissue Ultrasound 10/28/23 08:31 IMPRESSION: Nonspecific nodule within the dorsal surface of the left wrist not typical appearance for ganglion. Clinical correlation recommended Electronically Signed: John Henderson MD at 23:09 EDT , D/C Instructions Discharge Diet: Low fat / Low cholesterol Discharge Activity: Return to Normal Activity Call your doctor if you observe: Fever of 101 or Higher, Shortness of breath, Dizziness, Swelling in the ankles, Chest pain and Uncontrolled pain Meaningful Use Info Meaningful Use Meaningful Use Diagnoses (Choose all that apply): None applicable Ischemic Stroke Statin Dosing Therapy Reference: STATIN DOSE THERAPY REFERENCE: * Patients > 75 years receive moderate or high dose statin therapy. * Patients 75 years or YOUNGER should receive HIGH intensity statin dose unless contraindicated. You will be required to document reason for non-treatment if statin daily dose does not meet guidelines. HIGH DOSE STATIN THERAPY DAILY Atorvastatin > than or = to 40 mg Rosuvastatin > than or = to 20 mg Amlodipine + Atorvastatin > than or = to 2.5/40 mg Ezetimibe + Simvastatin 10/80 mg Simvastatin 80mg Discharge Plan Admission Admit Date/Time: 10/27/23 20:36 Primary Reason for Your Visit: septic arthritis of the left wrist Attending Provider: Sivan Wright Primary Care Provider: Sharla Mckenzie Consulting Providers: Josemanuel Palomares; Shahram Mehta; Shahram Macias; Masood Pérez Instructions Patient Instructions: Septic Arthritis Additional Instructions / Restrictions: Operations Performed: Wrist wash out Instructions for My Care at Home or Healthcare Facility The following instructions will help you know what to expect in the days following surgery. These are general instructions. Your surgeon and therapist may give you special instructions, which vary to some degree based on your specific procedure -- follow those as directed. Do not, however, hesitate to call if you have any questions or concerns. Splint Care/Dressing Care/Wound Care Dressings - You may have a dressing over the operative site. Apply dry dressing and splint after the soaks. Juli, the therapist, will be reaching out to you for an appointment for splinting evaluation. For the wound care, do 20 minute dial soap soaks followed by packing of the incisions with iodoform (like the nursing staff showed). ? Activities No using the left hand for any lifting. .? Pain Control/Medications If you received an anesthetic block, your hand or arm may be numb for several hours. You will be discharged to home with medications, including an oral pain medication (analgesic). Rest and elevation are still one of the most important factors for pain control. Take your pain medication as needed, but do not wait for the pain to become out of control. For severe pain, you may take prescription pain medication as directed, but please note that this may also contain Tylenol (e.g. Percocet). Do not take more than 4000mg of Tylenol (acetaminophen) from all sources daily.? Pain medication may cause some lethargy, nausea, and or constipation. You should not drive/operate dangerous machinery while taking these medications. If these or other symptoms become significantly problematic, please your surgeon's office. If prescribed oral antibiotics (Keflex, Clindamycin, or others), please take prescription for full duration as instructed. You should not have any pills remaining once completed (refills are written for your convenience should the course need to be extended, but generally they are not required). Diet (what I can eat): Resume normal Follow up: Follow up with me in clinic on Tuesday, 03 Nov 2023 Follow-up appointment reminders:? (A list of any scheduled appointments is at the end of this document)? At your earliest convenience, please call [phone] to confirm/schedule a follow-up appointment with me in clinic. When to call your surgeon: If any signs of surgical site infection develop: redness, pus, pain, increased swelling or foul odor at the incision site, fever, cold and clammy skin, or confusion. Consistent temperature above 101?F (38.3?C). The affected area gets swollen or much more painful. You have excessive bleeding from surgical site (soaking through). If you experience difficulty breathing and/or shortness of breath, seek immediate medical attention. If experiencing any of the above complications or if you have any questions, call [phone] Discharge Orders/Prescriptions Prescriptions: New oxycodone 5 mg Tablet 5 mg PO Q4H PRN PRN (Reason: Pain Score 4-10) 3 Days Qty: 18 0RF doxycycline hyclate 100 mg tablet 100 mg PO BID 21 Days Qty: 42 0RF cefadroxil 1 gram tablet 1,000 mg PO BID 21 Days Qty: 42 0RF Continued docusate sodium [Colace] 100 mg capsule 100 mg PO BID glycopyrrolate 1 mg tablet 1 mg PO TID clozapine 100 mg tablet 600 mg PO QHS Patient Comments: PT STATES HE IS HAVING TROUBLE GETTING NHAN TO CALL IN REFILL. WILL RUN OUT SOON lithium carbonate 600 mg capsule 600 mg PO BID Referrals / Follow Up: Sharla Mckenzie MD [Primary Care Provider] - Within 1 Week Shahram Macias MD [Med Staff - Active Staff] - Within 1 Week Disposition Disposition (needs filled in before D/C Order can be placed): Home, Self Care Charges/Coding Visit Charges Inpatient E&M: 47527 Disch Hosp >30min
--- NOTE | 2023-11-01 13:56 | CASEMGMT ---
JOSSELYN CM into pt room, pt just came out of bathroom. Pt states he feels comfortable with his dial soaks at home. He states Juli the OT will be reaching out to him about a splint. Noted this on dc instructions as well. Pt has exercises to perform. Pt states his is going to come in to hear the dc instructions as well. Pt denies any further homegoing needs at this time.
[2023-11-01] MEDS: Acetaminophen 325 MG Tablet 650 MG PO (14:12)
[2023-11-01] MEDS: oxyCODONE 5 MG Tablet PO (14:12)
[2023-11-01 15:15] VITALS: BP 128/79; PULSE 90; RESP 16; TEMP 36.9; O2SAT 96
[2023-11-01 15:16] VITALS: BP 128/79; PULSE 90; RESP 16; TEMP 36.9; O2SAT 96
--- NOTE | 2023-11-01 18:49 | NURSING ---
pt phoned in, states he is having a very difficult time having his antibiotic filled at outside pharmacy. informed pt that said nurse spoke with [facility] pharmacist Marshall and he is aware of situation and [facility] carries. Pt aware and Antonio in pharmacy given pt cell phone number to connect with pt regarding his home antibiotic.
--- NOTE | 2023-11-02 16:08 | CASEMGMT ---
RN CM had note that pt [place] [facility] [place] [facility] to pt, he states he did get his rx from [facility] and it all was worked out and he is taking the medication. He appreciated the follow up. Pt denies any further questions or needs.
== END 2023-11-01 17:31 | disposition home or self-care (01) | DRG 506 ==
LOC: ED 19:58 → MS3 20:47
PROVIDERS: Nurse Practitioner Family; Surgery Plastic and Reconstructive Surgery; Admitting Provider Internal Medicine; Emergency Provider Emergency Medicine; PCP Family Medicine; Referring Provider Emergency Medicine; Visit Provider Student in an Organized Health Care Education/Training Program
PROC: 0R9P00Z Drainage of Left Wrist Joint with Drainage Device, Open Approach (ICD-10-PCS; principal; 2023-10-28 16:00)
DX: M00.9 Pyogenic arthritis, unspecified (principal); E66.9 Obesity, unspecified; F31.9 Bipolar disorder, unspecified; M67.432 Ganglion, left wrist; M19.032 Primary osteoarthritis, left wrist; Z68.33 Body mass index [BMI] 33.0-33.9, adult; Z79.899 Other long term (current) drug therapy
CPT/HCPCS: 36415; 73130; 76882; 80048; 80053; 80178; 80202; 83605; 83735; 84100; 84443; 85025; 85652; 86140; 87015; 87070; 87075; 87102; 87116; 87205; 87206; 88304; 89050; 89051; 89060; 90656; 94668; 97166; 99283; J7030; J7040; J7050; A4216; J0295; J2405

== ENCOUNTER → 2023-10-27 | Outpatient (CLI) | payer BC, SELFPAY ==
[2023-10-27 18:02] LABS: Auto B Fluid Analyzer BKGD Ct QNS (W/IN LIMITS); Color/Body Fluid RED
[2023-10-27 18:03] LABS: Appearance/Body Fluid CLOUDY; CRYSTALS, BODY FLUID See PATH REV
[2023-10-27 18:05] LABS: Body Fluid QC Type(s) BF1Q; Source- Body Fluid SYNOVIAL
[2023-10-28 07:56] LABS: Pathologist Comment/Body Fluid May follow
[2023-10-28 07:57] LABS: Body Fluid Total Cells Counted QNS 10^3/ul; Red Cell Count/Body Fluid QNS 10^6/ul; Source- Body Fluid OTHER
[2023-10-28 07:58] LABS: White Blood Count/Body Fluid QNS 10^3/uL
[2023-10-28 08:00] LABS: Lymphocytes 4 %; Monocytes 4 %; Neutrophil (Segs) 92 %
[2023-10-28 10:04] LABS: Pathologist Review Reviewed
== END | disposition home or self-care (01) ==
LOC: LABSPEC 17:08
PROVIDERS: PCP Surgery Plastic and Reconstructive Surgery; Visit Provider Surgery Plastic and Reconstructive Surgery
DX: M25.532 Pain in left wrist (principal)
CPT/HCPCS: 87070; 87075; 87205; 89050; 89060

== ENCOUNTER → 2023-11-08 | Outpatient (CLI) | payer BC, SELFPAY ==
--- NOTE | 2023-11-08 09:51 | US_ITS ---
STUDY: SUPERFICIAL ULTRASOUND - LEFT WRIST. REASON FOR EXAM: Male, 43 years old. Left wrist mass follow up post surgery TECHNIQUE: A superficial ultrasound was performed with real-time and static ibanez-scale imaging. COMPARISON: Comparison is made with prior examination of October 28, 2023. FINDINGS: Soft tissue edema is seen. The previously seen complex nodule is not seen at this time. US/Ext Non Vasc Limited/Soft Tiss IMPRESSION: Soft tissue edema. No nodule is seen. Electronically Signed: Rhett Caro MD at 13:09 EDT ,
== END | disposition home or self-care (01) ==
PROVIDERS: PCP Family Medicine; Referring Provider Family Medicine; Visit Provider Family Medicine
DX: R22.9 Localized swelling, mass and lump, unspecified (principal)
CPT/HCPCS: 76882

== ENCOUNTER 2023-12-08 10:00 | Outpatient (RCR) | payer BC, SELFPAY ==
--- NOTE | 2023-11-03 16:17 | HP.OTEVAL_ITS ---
Patient's Visit Information Visit Information Visit Information: LIZA DA SILVA is a 43 year old M, referred to Occupational Therapy by Dr. Shahram Macias MD, with a diagnosis of Ganglion cyst dorsum of wrist left. Date of Evaluation: 11/03/23 Occupational Therapist: Samantha Mederos, JACQUELINE/Amauri, CHT Subjective Subjective: This 43 year old male was seen for OT eval with dx of septic arthritis left wrist- underwent sx on and has been performing soaks and packing of his wound since. pt arrives to day from Dr. Macias's office motivated and happy with the progress he has made at this time. Sep 28 went to ER worked the and could not use left hand for his job tasks. pt worked at [employer] pt currently unable to work pt is right handed pt currently needing assist with all ADLS and would like to return to his PLOF. Pain left hand: Current Pain Intensity: 1 Pain Intensity Range: 1 ROM Forearm: right WNL left slow but WFL Wrist: right 65/65 left 10/30 Opposition: Kapandji opposition scale right 10 left 5 ROM Comments: pt demo with decrease in wrist and digit ROM open wound with packing ( looks great) Strength Jockey Room Custodian: right 100# left 5# Lateral Pinch: right 24# left 10# Tripod Pinch: right 24# left 4# Sensation Sensation Comments: denies Quick DASH-Disab of Arm,Shoulder& Hand Quick DASH Score: 75.0000 Goals Goal:100% adherence to protocol: Yes Goal:Daily scar massage when approriate: Yes Goal:ROM equal to unaffected hand: Yes Goal:Jockey Room Custodian/Pinch strength at least 75% of unaffected hand: Yes Goal:No pain with affected hand use: Yes Goal:Full use of affected hand in daily activities including work: Yes Other Goal: pt to cont with Dial soaks and packing IND until Dr. Barnes's [facility] General Assessment: Pt arrives 6 days s/p from ganglion, pyogenic arthritis, septic wrist. pt demo haling structures and open wound with packing . pt demo need for custom orthosis to allow for support and protection while healing. Pt ed. on POC 1-2x week for 6-8 weeks to ensure wound closer, improved ROM and strength to return pt to his PLOF. pt demo understanding and agree to POC. Rehabilitation Potential: Good Anticipated Interventions Anticipated Interventions: A/AAROM/PROM, Strengthening, Edema Control, Scar Care, Triggerpoint Release, Sensory Retraining, Wound Care, Orthoses, Joint Protection/Energy Conservation, Ergonomic Education, Education re Diagnosis, Caregiver Training and Home Program Visit Plan Frequency: 1-2x /Week Duration: 2 Months General Plan: pt instructed in orthosis ( N cock- up orthosis) use- and precautions pt instructed to initiate ROM 4-6 x a day vs 3 x a day ( slow and comfortable with no increase in pain) pt demo understanding therapy will cont with wound care 1x a week as long as Dr. Macias is also seeing 1x a week- if Gilberto decreases frequency OT will increase visits to 2x a week to ensure wound closure, improved ROM and strength when able. pt demo understanding and agrees to POC. TEXT: Thank you for the opportunity to evaluate your patient. For Medicare and Medicare HMO plans, please review the plan of care and approve it. It will need to be FAXED BACK to us at [phone] for Medicare purposes. Please let me know if there are questions or concerns regarding this plan of care. Physician Signature: Date:
--- NOTE | 2023-12-08 11:09 | OTREVAL_ITS ---
Re-Evaluation Intro: Dr. Shahram Macias MD, It has been my pleasure to treat LIZA DA SILVA over the last 10 visits for Ganglion cyst dorsum of wrist left. Please see the progress note below for an update on the occupational therapy plan of care! Subjective Subjective: pt arrives had appointment on tuesday with solomon who would like pt to back off of heavy resistance exercise at this time however has cleared him to go back to work on the . Objective Objective/Function: L wrist 40/[address] 20 L key attendant 25# lateral as well as tripod pinch 5# Plan Plan Frequency: 1-2x /Week Duration: 2 Months Visits in this POC: 2 months (1-2x week) Plan: cont to strengthen as pt tolerates Goals Goals Patient Goals: Regain Mobility and Use Hand/Wrist/Arm Normally Again Goal Progress: Goal Met Goal:100% adherence to protocol: Yes Goal:Daily scar massage when approriate: Yes Goal Progress: Goal Met Goal:ROM equal to unaffected hand: Yes Goal Progress: Progressing Goal:Middle School Coach/Pinch strength at least 75% of unaffected hand: Yes Goal Progress: Progressing Goal:No pain with affected hand use: Yes Goal Progress: Progressing Goal:Full use of affected hand in daily activities including work: Yes Goal Progress: Progressing Other Goal: pt to cont with Dial soaks and packing IND until Dr. Deras/emmy's Anticipated Interventions Anticipated Interventions Anticipated Interventions: A/AAROM/PROM, Strengthening, Edema Control, Scar Care, Triggerpoint Release, Sensory Retraining, Wound Care, Orthoses, Joint Protection/Energy Conservation, Ergonomic Education, Education re Diagnosis, Caregiver Training and Home Program Re-Evaluation Ending Re-evaluation ending: Please do not hesitate to contact me at [phone] by phone or if you have questions or concerns regarding this new plan of care! Sincerely, Tomasa Caballero
== END 2023-12-08 19:00 | disposition home or self-care (01) ==
LOC: OT 10:00
PROVIDERS: PCP Family Medicine; Referring Provider Surgery Plastic and Reconstructive Surgery; Visit Provider Surgery Plastic and Reconstructive Surgery
DX: M00.9 Pyogenic arthritis, unspecified (principal); M25.532 Pain in left wrist; M25.432 Effusion, left wrist
CPT/HCPCS: 97110; 97165; 97530; 97760

== ENCOUNTER 2024-04-13 09:02 | Emergency (ER) | payer BC, SELFPAY ==
[2024-04-13 09:03] VITALS: BP 110/79; PULSE 91; RESP 16; O2SAT 97
[2024-04-13 09:05] VITALS: BP 120/82; PULSE 108; RESP 14; TEMP 36.7; O2SAT 97; BMI 30.1
--- NOTE | 2024-04-13 09:21 | EX.ED.DYSGE1 ---
HPI History of Present Illness Chief Complaint: Mental Status Change Informant: patient and spouse/S.O. Narrative Narrative: 43-year-old male presenting to the emergency room with drowsiness/sleepiness. Patient has a history of bipolar disorder and currently is on lithium clozapine and glycopyrrolate. Family states that he recently ran out of his clozapine for 10 days. Family states that it has been very difficult for them to get their prescriber to refill the medication. Typically he takes 650 mg at night. He got his prescription renewed and he took it yesterday at 2100 hrs. Today he is having difficulty staying awake. He drives professionally for a living and there was concern as to why he is so drowsy. Family notes he gets his lithium levels checked once a month. Family notes that he is almost out of his lithium as well. [facility] Medical History Obesity (BMI 30.0-34.9) Septic arthritis Non-restorative sleep Wrist pain, left Swelling of left wrist Knee pain, right Sweating increase Snoring Nevus Bipolar disorder Home Medications ?Medication ?Instructions ?Recorded ?Last Taken ?Type clozapine 100 mg tablet 600 mg PO QHS 10/03/23 10/26/23 History glycopyrrolate 1 mg tablet 1 mg PO TID 10/03/23 10/27/23 History lithium carbonate 600 mg capsule 600 mg PO BID 10/03/23 10/27/23 History docusate sodium 100 mg capsule 100 mg PO BID 10/20/23 10/27/23 History (Colace) doxycycline hyclate 100 mg tablet 100 mg PO BID 3 weeks #42 tabs 11/01/23 Unknown Rx Allergy/AdvReac Type Severity Reaction Status Date / Time clarithromycin (From Biaxin) Allergy PT UNSURE Verified 04/13/24 09:07 OF REACTION Social History household members: spouse number of children: 2 current occupational status: employed current occupation: [employer] Smoking Status: Never smoker alcohol intake: never substance use type: does not use seatbelt use: always ROS ROS ED ROS Narrative Generalized fatigue and sleepiness Constitutional Constitutional ED: Denies chills or weight loss Eyes Eyes: Denies change in vision or diplopia ENT ENT ED: Denies ear pain, rhinorrhea or sore throat Cardiovascular Cardiovascular: Denies chest pain, orthopnea, palpitations or racing heartbeat Respiratory/Chest Respiratory/Chest: Denies cough, dyspnea or orthopnea Gastrointestinal Gastrointestinal: Denies abdominal pain, diarrhea, nausea or vomiting Genitourinary Genitourinary ED: Denies dysuria, hematuria or urinary frequency Musculoskeletal Musculoskeletal: Denies arthralgias or myalgias Integumentary Denies abscess or rash Neurologic Neurologic: Denies headache(s) or weakness Psychiatric Psychiatric: Denies anxiety, depression, suicidal ideation or suicidal thoughts Endocrine Endocrinology: Denies polydipsia, polyphagia or polyuria Allergic/Immunologic Allergic/Immunologic ED: Denies mouth swelling, tongue swelling or urticaria EXAM Physical Exam Const Vital Signs: 04/13/24 09:03 04/13/24 09:05 04/13/24 11:03 Temperature 98.0 F Temperature Source Oral Pulse Rate 91 108 H 84 Respiratory Rate 16 14 16 Respiratory Effort Respiratory Pattern Blood Pressure 110/79 120/82 H 110/78 Blood Pressure Mean 89 94 88 Pulse Ox 97 97 99 Oxygen Delivery Method Room Air Room Air Room Air 04/13/24 13:00 04/13/24 14:14 Temperature Temperature Source Pulse Rate 71 Respiratory Rate 16 Respiratory Effort Normal Non-Labored Respiratory Pattern Normal Blood Pressure 97/65 Blood Pressure Mean 75 Pulse Ox 98 Oxygen Delivery Method Room Air Positive well nourished and well developed General Appearance ED: well developed and NAD HEENT Reports normocephalic, head/scalp atraumatic and moist mucous membranes Eyes PERRL and EOMs intact bilaterally Eyes Narrative: Injected conjunctiva Neck no lymphadenopathy, supple and no JVD Resp normal respiratory effort and clear to auscultation bilaterally Cardio regular rate, regular rhythm and no murmurs GI normal to inspection, nondistended, normoactive bowel sounds and non-tender Palpation: soft Back/Spine no CVA tenderness and normal ROM Extremity normal to inspection General Extremety ED: Negative for edema General Extremity: Negative for edema Neuro oriented x3 and CN's II-XII intact bilaterally Neuro Narrative: Patient is alert oriented x 3 but appears very drowsy. Sensorium / Orientation: alert Motor Exam: strength 5/5 throughout Psych mental status grossly normal Mood & Affect: Negative for depressed or tearful Skin no rashes or lesions noted and no wounds MDM MDM MDM Narrative Medical decision making narrative: Differential diagnosis includes but not limited to medication reaction lithium toxicity liver dysfunction/hepatic encephalopathy COVID ingestion insomnia Patient's blood work shows a normal liver transaminases normal creatinine. Patient's toxicology workup shows a lithium level of 1.29. Using the patient's phone he shows me his lithium levels over the past year which typically are around 0.7 but he did have a 1.3 level in November of last year. Patient states he did not adjust his dosing. Patient's been able to sleep. He appears steady on his feet up walking to the bathroom. I reached out to the prescriber that was on the bottle from yesterday that refilled it. They called me back and they informed me that they needed to speak with a colleague. The patient tells me that the clinic called him that his appointment has been moved up until April 25. I am still waiting on a call back from them so that we can find out about adjusting his medication dosing as I think the 650 mg that he took last night was the culprit for his symptomology today. Patient is significant other expressed interest in seeing somebody locally for psychiatry. I can give him Dr. Haddad with the outpatient [facility] services as well as the counseling center of [facility]. History & Record Review Discussion w/independent historian: Patient and Family Lab Data Attestation: I reviewed the patient's lab results. Labs: Laboratory Results - last 24 hr 04/13/24 09:44 WBC 7.2 RBC 5.46 Hgb 14.4 Hct 44.8 MCV 82.1 MCH 26.4 L MCHC 32.1 RDW Std Deviation 40.2 RDW Coeff of Emily 13.5 Plt Count TNP MPV 11.6 Immature Gran % (Auto) 0.400 Neut % (Auto) 80.9 H Lymph % (Auto) 11.4 L [place] % (Auto) 7.0 Eos % (Auto) 0.0 Baso % (Auto) 0.3 Absolute Neuts (auto) 5.8 Absolute Lymphs (auto) 0.82 L Nucleated RBC % 0 Platelet Estimate SLT DEC Sodium 137 Potassium 3.7 Chloride Direct 106 Carbon Dioxide 21.0 L Anion Gap 11 BUN 14 Creatinine 0.92 Estim Creat Clear Calc 142.00 Est GFR (MDRD) Non-Af 106 BUN/Creatinine Ratio 14.9 Glucose 105 H Calcium 9.2 Total Bilirubin 1.30 Direct Bilirubin 0.50 H AST 24 ALT 15 Alkaline Phosphatase 95 Total Protein 6.9 Albumin 4.4 Globulin 2.5 Urine Color Yellow Urine Clarity Clear Urine pH 6.5 Ur Specific [place] 1.010 Urine Protein 15 H Urine Glucose (UA) Normal Urine Ketones 50 H Urine Occult Blood Negative Urine Nitrite Negative Urine Bilirubin Negative Urine Urobilinogen Normal Ur Leukocyte Esterase Negative Urine RBC 0 SEEN Urine WBC 0 SEEN Ur Squamous Epith Cells 0 SEEN Urine Bacteria 0 SEEN Urine Mucus 0 SEEN Urine Opiates Screen NEGATIVE U Buprenorphine Qual NEGATIVE Ur Oxycodone Screen NEGATIVE Urine Methadone Screen NEGATIVE Urine Fentanyl Screen NEGATIVE Ur Barbiturates Screen NEGATIVE Ur Phencyclidine Scrn NEGATIVE Ur Amphetamines Screen NEGATIVE U Benzodiazepines Scrn NEGATIVE [place] 1.29 H Urine Cocaine Screen NEGATIVE U Cannabinoids Screen NEGATIVE Ethyl Alcohol < 10.1 Discharge Plan Triage Chief Complaint: Mental Status Change Other Complaint: General Illness ED Provider: Rory Soares Dx/Rx/DC Orders Clinical Impression: Medication reaction, Elevated lithium level Instructions: ED Drug Reaction, Other Prescriptions: No Action docusate sodium [Colace] 100 mg capsule 100 mg PO BID glycopyrrolate 1 mg tablet 1 mg PO TID clozapine 100 mg tablet 600 mg PO QHS Patient Comments: PT STATES HE IS HAVING TROUBLE GETTING [facility] OF MD TO CALL IN REFILL. WILL RUN OUT SOON lithium carbonate 600 mg capsule 600 mg PO BID doxycycline hyclate 100 mg tablet 100 mg PO BID 21 Days Qty: 42 0RF Primary Care Provider: Sharla Mckenzie Referrals: [facility] [Group of Physicians] - (For local psychiatry) Sharla Mckenzie MD [Primary Care Provider] - [place] Haddad DO [Med Staff - Transportation Superintendent] - (For local psychiatry) Activity Restrictions/Additional Instructions: [facility] is working on getting you a earlier appointment. I would recommend not taking the Clozapin until you discuss this further with your psychiatrist as the reaction you had was oversedation based on the dosing and it being out of your system for 10 days. Your lithium level today was elevated at 1.29. I would recommend holding the lithium until Tuesday when you should have your level redrawn. Print Language: [place] Citizen Disposition Disposition: Home, Self Care
[2024-04-13 09:57] LABS: Absolute Lymphocyte Count 0.82 X10^3/uL (0.83-4.51); Absolute Neutrophil Count 5.8 X10^3/uL (2.0-7.7); Basophil# 0.02 X10^3/uL; Basophil% 0.3 % (0-1); Hematocrit 44.8 % (40-54); Hemoglobin 14.4 g/dL (13.0-16.5); Lymphocyte # 0.82 X10^3/ul (0.83-4.51); Lymphocyte % 11.4 % (19-41); Mean Corp Hgb Conc 32.1 g/dL (32-36); Mean Corpuscular Hgb 26.4 pg (27.0-32.0); Mean Corpuscular Volume 82.1 fL (80-94); Mean Platelet Vol. 11.6 fl (6.2-12.0); NRBC Flagged by Analyzer 0 % (0-5); Neutrophil # 5.82 X10^3/uL (2.7-7.7); Neutrophil % 80.9 % (47-70); POSITIVE COUNT YES; RBC Distribution Width CV 13.5 % (11.6-14.6); RBC Distribution Width SD 40.2 fl (35.1-43.9); Red Blood Count 5.46 M/mm3 (4.6-6.2); White Blood Count 7.2 K/mm3 (4.4-11.0)
[2024-04-13 10:21] LABS: Amphetamine Urine NEGATIVE (<1000 ng/mL); Bacteria 0 SEEN /hpf (None Seen); Barbiturate Urine NEGATIVE (< 200 ng/mL); Benzodiazepine Urine NEGATIVE (< 200 ng/mL); Buprenorphine Urine NEGATIVE (< 200 ng/mL); Cocaine Urine NEGATIVE (< 300 ng/mL); Fentanyl, Urine NEGATIVE; Methadone Urine NEGATIVE (< 300 ng/mL); Mucous, Urine 0 SEEN /hpf (<or=2+); Opiates Urine NEGATIVE (< 300 ng/mL); Oxycodone, Urine NEGATIVE (< 100 ng/mL); PCP Urine NEGATIVE (< 25 ng/mL); Squamous Epithelial Cells - UA 0 SEEN /hpf (0-5); THC Urine NEGATIVE (< 50 ng/mL); White Blood Cells 0 SEEN /hpf (0-5)
[2024-04-13 10:25] LABS: Differential Indicated SCAN CRITERIA MET; Platelet Estimate SLT DEC (ADEQ)
[2024-04-13 10:26] LABS: AST(SGOT) 24 U/L (<=37); Alanine Aminotransfer ALT/SGPT 15 U/L (<=46); Albumin, Serum 4.4 g/dL (3.5-5.0); Alkaline Phosphatase 95 U/L (40-129); Anion Gap 11 (5-15); BUN 14 mg/dL (4-19); BUN/Creat Ratio 14.9 RATIO (10-20); Calcium 9.2 mg/dL (7.6-11.0); Chloride 106 mmol/L (96-108); Creatinine, Serum 0.92 mg/dL (0.70-1.20); EST Glomerular Filtration Rate 106 (>60); Globulin 2.5 g/dL (2.2-4.2); Glucose 105 mg/dL (70-99); Potassium 3.7 mmol/L (3.3-5.1); Protein, Total 6.9 g/dL (5.9-8.4); Sodium Level 137 mmol/L (133-145)
[2024-04-13 10:36] LABS: Color, Urine Yellow (Yellow); Glucose, Dipstick Normal (Normal); Ketone-Dipstick 50 mg/dl (Negative); Leukocyte Esterase-Dipstick Negative /ul (Negative); Nitrite-Dipstick Negative (Negative); Occult Blood-Urine Negative /ul (Negative); Protein-Dipstick 15 mg/dl (Negative); Urine Bilirubin Dipstick Negative (Negative); Urine Clarity Clear (Clear); Urine Urobilinogen Normal (Normal); Urine pH 6.5 (5.0 - 8.0)
[2024-04-13 11:03] VITALS: BP 110/78; PULSE 84; RESP 16; O2SAT 99
[2024-04-13 11:03] LABS: Red Blood Cells-Urine 0 SEEN /hpf (0-5)
[2024-04-13 11:14] LABS: Alcohol, Blood (Medical)-Serum < 10.1 mg/dL (<=10.0); Lithium 1.29 mmol/L (0.60-1.20)
[2024-04-13 13:00] VITALS: BP 97/65; PULSE 71; RESP 16; O2SAT 98
[2024-04-13 15:00] VITALS: BP 110/75; PULSE 65; RESP 15; O2SAT 96
[2024-04-13 15:39] VITALS: TEMP 37.1
== END 2024-04-13 15:41 | disposition home or self-care (01) ==
PROVIDERS: Emergency Provider Emergency Medicine; PCP Family Medicine; Visit Provider Emergency Medicine
DX: R41.82 Altered mental status, unspecified (principal); F31.9 Bipolar disorder, unspecified; R78.89 Finding of other specified substances, not normally found in blood; T42.4X5A Adverse effect of benzodiazepines, initial encounter; Z79.899 Other long term (current) drug therapy
CPT/HCPCS: 80048; 80076; 80178; 80307; 81001; 82077; 85025; 99283